=== PATIENT | male | born 1985 | race Two or more races ===

== ENCOUNTER 2019-06-05 21:30 | Inpatient (IN) | payer OTHER ==
[2019-06-05] MEDS ORDERED: SODIUM CHLORIDE 1,000 ML IV STA (21:38)
--- NOTE | 2019-06-05 21:38 | PDOC ---
Rapid Medical Evaluation Time Seen by Provider: 06/05/19 21:35 Medical Evaluation: 06/05/19 21:35 CC: dizziness- loss of balance; dx with DM 5 days ago- no meds. PE: AF. BP-161/76. Gait steady. Neuro grossly normal. Orders: DKA w/u Patient will proceed to ED for continued evaluation. Discharge Disposition - Diagnosis Dizziness - Referrals - Patient Instructions - Post Discharge Activity
--- NOTE | 2019-06-05 22:18 | PDOC ---
History of Present Illness - General Chief Complaint: Lightheaded Stated Complaint: DIZZINESS, ABD PAIN Time Seen by Provider: 06/05/19 21:35 History Source: Patient Exam Limitations: No Limitations - History of Present Illness Initial Comments: 06/05/19 22:18 33yM w PMHx DM, obesity, GERD presenting w 2d lightheadedness, blurry vision, polyuria, polydypsia, constipation (last BM 3d ago), constant mild epigastric pain. Was discharged from [facility] 2d ago for new DM diagnosis and DKA vs HHS management (BG 1100). Was DC w insulin prescription but could not get meds d/t insurance issues and cost. Denies LOC, head trauma, fall, headache, fevers, chest pain, SOB, dysuria. Past History - Past Medical History Allergies/Adverse Reactions: Allergies Allergy/AdvReac Type Severity Reaction Status Date / Time No Known Allergies Allergy Verified 06/05/19 21:37 COPD: No Diabetes: Yes - Surgical History Appendectomy: Yes - Psycho Social/Smoking Cessation Hx Smoking History: Never smoked Review of Systems - Review of Systems Constitutional: No: Chills, Fever HEENTM: Yes: Recent change in vision. No: Nose Pain Respiratory: No: Cough, Shortness of Breath Cardiac (ROS): No: Chest Pain, Palpitations ABD/GI: Yes: Constipated. No: Abdominal Distended, Diarrhea, Nausea, Vomiting : Yes: Frequency. No: Burning Musculoskeletal: No: Back Pain, Joint Pain Integumentary: No: Bruising, Flushing Neurological: No: Headache, Seizure Psychiatric: No: Anxiety, Depression Endocrine: No: Intolerance to Cold, Intolerance to Heat Hematologic/Lymphatic: No: Anemia, Blood Clots *Physical Exam - Vital Signs Last Vital Signs Temp Pulse Resp BP Pulse Ox 97.9 F 98 H 18 161/76 98 06/05/19 21:35 06/05/19 21:35 06/05/19 21:35 06/05/19 21:35 06/05/19 21:35 - Physical Exam General Appearance: Yes: Nourished, Appropriately Dressed, Mild Distress, Obese HEENT: positive: EOMI, TALHA, Normal Voice. negative: Scleral Icterus (R), Scleral Icterus (L) Respiratory/Chest: positive: Lungs Clear, Normal Breath Sounds. negative: Chest Tender, Respiratory Distress, Crackles, Rales, Rhonchi, Stridor, Wheezing Cardiovascular: positive: Regular Rhythm, Regular Rate, S1, S2. negative: Edema , Murmur Gastrointestinal/Abdominal: positive: Normal Bowel Sounds, Tender (mild epigatric), Flat, Soft. negative: Organomegaly Musculoskeletal: negative: CVA Tenderness (R), Other Extremity: positive: Delayed Capillary Refill Integumentary: positive: Normal Color, Dry Neurologic: positive: sole ruffer II-XII NML intact, Fully Oriented, Alert, Normal Response, Responsive, Other (no gross vision deficits). negative: Confused, Disoriented ED Treatment Course - LABORATORY CBC & Chemistry Diagram: 06/05/19 23:30 06/05/19 22:50 Medical Decision Making - Medical Decision Making 06/05/19 22:44 EKG NSR, HR 86, QTc 409, TWI V1 CT A/P normal pancreas, gallbladder, biliary, hemangioma L acetabulum, hepatosplenomegaly Hgb 10.7, pH 7.36, Cr 1.5, lipase 767, BG 675 --- 33yM w PMHx DM, obesity, GERD presenting w 2d lightheadedness, blurry vision, polyuria, polydypsia, constipation (last BM 3d ago), constant mild epigastric pain Has profound hyperglycemia 2/2 med noncompliance. Also has BERTO (Cr 1.5) and rhabdo (CK 1062). Low concern for UTI (neg) vs ACS (neg trop) vs DKA (does not meet diagnosis criteria) vs pancreatitis (normal pancreas on CT) Given 2L NS, 8u insulin, tylenol. Repeat BG 381 Admitted tele hospitalist for hyperglycemia, BERTO No PCP Discharge - Discharge Information Problems reviewed: Yes Clinical Impression/Diagnosis: Hyperglycemia, BERTO (acute kidney injury) Condition: Improved - Follow up/Referral - Patient Discharge Instructions - Post Discharge Activity
--- NOTE | 2019-06-05 22:26 | PDOC ---
Attending Attestation - Resident Resident Name: LalitaGab - ED Attending Attestation I have performed the following: I have examined & evaluated the patient, The case was reviewed & discussed with the resident, I agree w/resident's findings & plan, Exceptions are as noted - HPI HPI: 06/12/19 20:41 See resident HPI - Physicial Exam PE: 06/12/19 20:42 Agree with exam as documented by resident - Medical Decision Making 06/12/19 20:42 Recently diagnosed with diabetes, recently treated and discharged from [facility] for DKA, unable to get prescribed medications 2/2 insurance here with signs/symptoms consistent with hyperglycemia, elevated on initial fingerstick F/u labs, eval for dka, hhs insulin, aggressive ivf dispo per clinical course, likely admission
[2019-06-05 23:15] LABS: BASO % 1.2 % (0-2.0); EOS % 1.6 % (0-4.5); HEMATOCRIT 30.9 % (35.4-49); HEMOGLOBIN 10.7 GM/dL (11.7-16.9); LYMPH % 29.5 % (8-40); MCH 30.2 pg (25.7-33.7); MCHC 34.7 g/dl (32.0-35.9); MONO % 7.2 % (3.8-10.2); NEUT % 60.5 % (42.8-82.8); RBC 3.56 M/mm3 (4.00-5.60); RDW 13.8 % (11.9-15.9); VENOUS PC02 48.8 mmHg (38-52); VENOUS PH 7.36 (7.31-7.41)
[2019-06-05 23:16] LABS: URINE APPEARANCE CLEAR; URINE BILIRUBIN NEGATIVE (NEGATIVE); URINE COLOR YELLOW; URINE GLUCOSE (UA) 3+ (NEGATIVE); URINE KETONE TRACE (NEGATIVE); URINE LEUK ESTERASE NEGATIVE (NEGATIVE); URINE NITRITE NEGATIVE (NEGATIVE); URINE PROTEIN NEGATIVE (NEGATIVE); URINE UROBILINOGEN 0.2 mg/dL (0.2-1.0)
[2019-06-05 23:17] LABS: VENOUS PO2 < 49 mmHg (28-48)
[2019-06-05 23:21] LABS: WHITE BLOOD COUNT 5.4 K/mm3 (4.0-10.0)
[2019-06-05] MEDS ORDERED: SODIUM CHLORIDE 0.9% 500 ML INFUS.BAG IV ONE (23:26)
[2019-06-05 23:28] LABS: INR 0.88 (0.83-1.09); PROTHROMBIN TIME (PATIENT) 10.4 SEC (9.7-13.0)
[2019-06-05 23:30] LABS: ACTIVATED PTT 23.5 SECONDS (25.2-36.5)
[2019-06-05 23:48] LABS: BASO % 0.9 % (0-2.0); EOS % 1.4 % (0-4.5); HEMATOCRIT 30.6 % (35.4-49); HEMOGLOBIN 10.5 GM/dL (11.7-16.9); LYMPH % 30.5 % (8-40); MCH 29.8 pg (25.7-33.7); MCHC 34.1 g/dl (32.0-35.9); MEAN CELL VOLUME 87.4 fl (80-96); MEAN PLT VOLUME 11.1 fl (7.5-11.1); MONO % 9.9 % (3.8-10.2); NEUT % 57.3 % (42.8-82.8); PLATELET COUNT 183 K/MM3 (134-434); RDW 13.7 % (11.9-15.9); WHITE BLOOD COUNT 5.4 K/mm3 (4.0-10.0)
[2019-06-05 23:53] LABS: ALBUMIN 3.7 g/dl (3.4-5.0); BILIRUBIN,TOTAL 0.5 mg/dL (0.2-1); BLOOD UREA NITROGEN 19.4 mg/dL (7-18); CALCIUM 8.4 mg/dL (8.5-10.1); CREATININE 1.5 mg/dL (0.55-1.3); POTASSIUM 5.1 mmol/L (3.5-5.1); TOT PROT 6.7 g/dl (6.4-8.2)
[2019-06-06] MEDS ORDERED: INSULIN REGULAR HUMAN 100 UNITS/ML *VIAL IVPUSH ONE (00:05)
[2019-06-06] MEDS ORDERED: INSULIN REGULAR HUMAN 100 UNITS/ML *VIAL ONE (01:03)
[2019-06-06] MEDS ORDERED: ACETAMINOPHEN 1000 MG/100 ML VIAL (NON FORMULARY) IVPB ONE (03:36)
[2019-06-06] MEDS ORDERED: ACETAMINOPHEN INJECTION 100 ML IVPB ONE (04:16)
--- NOTE | 2019-06-06 05:18 | PN ---
Teaching Attending Note Name of Resident: Kacey Holloway ATTENDING PHYSICIAN STATEMENT I saw and evaluated the patient. I reviewed the resident's note and discussed the case with the resident. I agree with the resident's findings and plan as documented. SUBJECTIVE: 33-year-old male with recently diagnosed diabetes mellitus, previously regarded as healthy, recently hospitalized at [facility] and treated in the ICU for severe hyperglycemia and discharged without ability to acquire insulin, presents complaining of increased fatigue, dizziness, blurry vision. Noted to be severely hyperglycemic in the emergency room, received 8 units of IV insulin , IV fluid with improvement of his symptoms.Noted to have high beta ejection butyrate, trace urine ketones however there was no anion gap present on his chemistry. OBJECTIVE: Last Vital Signs Temp Pulse Resp BP Pulse Ox 98.1 F 79 15 155/83 98 06/06/19 02:30 06/06/19 02:30 06/06/19 02:30 06/06/19 02:30 06/06/19 02:30 Physical exam was remarkable for an obese gentleman in no apparent distress. Appeared to have dry mucous membranes, head was atraumatic. Decrease JVD bilaterally. Lungs are clear bilaterally, abdomen benign soft with positive bowel sounds. Normal cardiac exam. Lower extremities with no pedal edema Abnormal Lab Results 06/05/19 06/05/19 06/05/19 22:50 22:50 22:50 RBC 3.56 L Hgb 10.7 L Hct 30.9 L MPV 12.0 H PTT (Actin FS) POC VBG pO2 VBG O2 Sat (Bonnie) Sodium Chloride Anion Gap BUN Creatinine Random Glucose Calcium AST ALT Creatine Kinase 1062 H Lipase Beta-Hydroxybutyrate 11.0 H Urine Glucose (UA) Urine Ketones 06/05/19 06/05/19 06/05/19 22:50 22:50 22:50 RBC Hgb Hct MPV PTT (Actin FS) 23.5 L POC VBG pO2 VBG O2 Sat (Bonnie) Sodium 132 L Chloride 97 L Anion Gap 6 L BUN 19.4 H Creatinine 1.5 H Random Glucose 675 H* Calcium 8.4 L AST 61 H ALT 78 H Creatine Kinase Lipase 767 H Beta-Hydroxybutyrate Urine Glucose (UA) 3+ H Urine Ketones Trace H 06/05/19 06/05/19 22:50 23:30 RBC 3.50 L Hgb 10.5 L Hct 30.6 L MPV PTT (Actin FS) POC VBG pO2 < 49 H VBG O2 Sat (Bonnie) 52.1 L Sodium Chloride Anion Gap BUN Creatinine Random Glucose Calcium AST ALT Creatine Kinase Lipase Beta-Hydroxybutyrate Urine Glucose (UA) Urine Ketones ASSESSMENT AND PLAN: 33-year-old male morbidly obese male with Uncontrolled hypertension, metabolic syndrome, with hyperosmolar hyperglycemic state, severely uncontrolled diabetes mellitus secondary to medication noncompliance secondary to lack of insurance. There is no positive anion gap therefore does not meet criteria for DKA. Blood glucose is much improved after 8 units of IV insulin. Patient is able to go to [facility] at this time. Severely intravascularly depleted, prerenal azotemia is noted. Very dry on physical exam likely from osmolar effect from hyperglycemia. 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 for uncontrolled hypertension and for renal protective effect #Transaminitisunclear etiology Liver sonogram DVT prophylaxisSCDs #Normocytic anemiauncertain etiology Iron studies, ferritin level, vitamin B12, TSH
--- NOTE | 2019-06-06 05:33 | HP ---
CHIEF COMPLAINT: dry mouth, urinary frequency, increased thirst, chills PCP: none HISTORY OF PRESENT ILLNESS: 33 y/o/m with PMHx of newly diagnosed DM, obesity, GERD presented to the ED due to increased urinary frequency, increased thirst, chills and abd pain. Patient was admitted to [facility] on 05/31 for lightheadedness, dry mouth, increased urinary frequency and lethargy. He states he was in the ICU for 2 days due to high glucose levels (over 1000) and was then monitored on the floors until he was discharged on 06/04. He was diagnosed with DM and discharged with prescription for DM medications including insulin, however due to high cost and insurance issues he was unable to get his medications for the last 2 days. He started to have intermittent blurry vision again, increased urinary frequency, dry mouth, and epigastric pain which led him to come to the ED. He has not had a BM in 3 days. He also complains of chills and a mild headache. He denies fever, dysuria, hematuria, chest pain, abd pain. He denies any recent injury. He states that he has spoken with the [employer] and has set up his insurance and should now be able to get insulin. Patient denies bloody/ dark stool. ER course was notable for: (1) 2L NS given, 8units insulin given. (2) Repeat BGM at 381 (3) CT A/P without evidence for pancreas, stomach, kidneys, gallbladder. Hemangioma of left acetabulam. No evidence of appendicitis Recent Travel: none PAST MEDICAL HISTORY: DM, obesity, GERD PAST SURGICAL HISTORY: Left knee CL repair, appendectomy Social History: Smoking: quit 2-3 months ago, was previously smoking 1 pack or less a day Alcohol: denies Drugs: occasional marijuana use when he travels somewhere where it is legal FamHx: mother with sickle cell who was on hemodialysis prior to passing at age 65. Father who is alive, has hx of HTN. Grandma with hx of DM, HTN Allergies No Known Allergies Allergy (Verified 06/05/19 21:37) HOME MEDICATIONS: REVIEW OF SYSTEMS as per HPI PHYSICAL EXAMINATION Vital Signs - 24 hr 06/05/19 06/06/19 21:35 02:30 Temperature 97.9 F 98.1 F Pulse Rate 98 H Pulse Rate [ 79 Left Radial] Respiratory 18 15 Rate Blood Pressure 161/76 Blood Pressure 155/83 [Left Arm] O2 Sat by Pulse 98 98 Oximetry (%) GENERAL: Awake, alert, and fully oriented, in no acute distress. HEAD: Normal with no signs of trauma. EYES: EOMI, no scleral icterus EARS, NOSE, THROAT: dry mucous membranes NECK: supple, trachea midline LUNGS: Breath sounds equal, clear to auscultation bilaterally. No wheezes, and no crackles. No accessory muscle use. HEART: Regular rate and rhythm, normal S1 and S2 without murmur, rub or gallop. ABDOMEN: Soft, nontender, not distended, normoactive bowel sounds, no guarding, no rebound, no masses RECTAL: no hemorrhoids noted, no raman blood seen. normal rectal tone MUSCULOSKELETAL: No bony deformities or tenderness EXTREMITIES: 2+ pulses, warm, well-perfused. No calf tenderness. trace edema of bilateral lower extremities NEUROLOGICAL: Cranial nerves II-XII intact. Normal speech. PSYCHIATRIC: Cooperative. Good eye contact. Appropriate mood and affect. SKIN: Warm, dry, normal turgor Laboratory Results - last 24 hr 06/05/19 06/05/19 06/05/19 22:33 22:50 22:50 WBC RBC Hgb Hct MCV MCH MCHC RDW Plt Count MPV Absolute Neuts (auto) Neutrophils % Lymphocytes % Monocytes % Eosinophils % Basophils % Nucleated RBC % PT with INR INR PTT (Actin FS) VBG pH POC VBG pCO2 POC VBG pO2 VBG HCO3 VBG O2 Sat (Bonnie) VBG Base Excess Sodium Potassium Chloride Carbon Dioxide Anion Gap BUN Creatinine Est GFR (CKD-EPI)AfAm Est GFR (CKD-EPI)NonAf POC Glucometer > 600 Random Glucose Calcium Total Bilirubin AST ALT Alkaline Phosphatase Creatine Kinase 1062 H Troponin I < 0.02 Total Protein Albumin Lipase Beta-Hydroxybutyrate 11.0 H Urine Color Urine Appearance Urine pH Ur Specific Stephenson Urine Protein Urine Glucose (UA) Urine Ketones Urine Blood Urine Nitrite Urine Bilirubin Urine Urobilinogen Ur Leukocyte Esterase 06/05/19 06/05/19 06/05/19 22:50 22:50 22:50 WBC 5.4 RBC 3.56 L Hgb 10.7 L Hct 30.9 L MCV 87.0 MCH 30.2 MCHC 34.7 RDW 13.8 Plt Count MPV 12.0 H Absolute Neuts (auto) 3.3 Neutrophils % 60.5 Lymphocytes % 29.5 Monocytes % 7.2 Eosinophils % 1.6 Basophils % 1.2 Nucleated RBC % 0 PT with INR 10.40 INR 0.88 PTT (Actin FS) 23.5 L VBG pH POC VBG pCO2 POC VBG pO2 VBG HCO3 VBG O2 Sat (Bonnie) VBG Base Excess Sodium 132 L Potassium 5.1 Chloride 97 L Carbon Dioxide 29 Anion Gap 6 L BUN 19.4 H Creatinine 1.5 H Est GFR (CKD-EPI)AfAm 68.91 Est GFR (CKD-EPI)NonAf 59.46 POC Glucometer Random Glucose 675 H* Calcium 8.4 L Total Bilirubin 0.5 AST 61 H ALT 78 H Alkaline Phosphatase 99 Creatine Kinase Troponin I Total Protein 6.7 Albumin 3.7 Lipase 767 H Beta-Hydroxybutyrate Urine Color Urine Appearance Urine pH Ur Specific Stephenson Urine Protein Urine Glucose (UA) Urine Ketones Urine Blood Urine Nitrite Urine Bilirubin Urine Urobilinogen Ur Leukocyte Esterase 06/05/19 06/05/19 06/05/19 22:50 22:50 23:30 WBC 5.4 RBC 3.50 L Hgb 10.5 L Hct 30.6 L MCV 87.4 MCH 29.8 MCHC 34.1 RDW 13.7 Plt Count 183 MPV 11.1 Absolute Neuts (auto) 3.1 Neutrophils % 57.3 Lymphocytes % 30.5 Monocytes % 9.9 Eosinophils % 1.4 Basophils % 0.9 Nucleated RBC % 0 PT with INR INR PTT (Actin FS) VBG pH 7.36 POC VBG pCO2 48.8 POC VBG pO2 < 49 H VBG HCO3 27.1 VBG O2 Sat (Bonnie) 52.1 L VBG Base Excess 1.7 Sodium Potassium Chloride Carbon Dioxide Anion Gap BUN Creatinine Est GFR (CKD-EPI)AfAm Est GFR (CKD-EPI)NonAf POC Glucometer Random Glucose Calcium Total Bilirubin AST ALT Alkaline Phosphatase Creatine Kinase Troponin I Total Protein Albumin Lipase Beta-Hydroxybutyrate Urine Color Yellow Urine Appearance Clear Urine pH 6.0 Ur Specific Stephenson 1.023 Urine Protein Negative Urine Glucose (UA) 3+ H Urine Ketones Trace H Urine Blood Negative Urine Nitrite Negative Urine Bilirubin Negative Urine Urobilinogen 0.2 Ur Leukocyte Esterase Negative 06/06/19 03:41 WBC RBC Hgb Hct MCV MCH MCHC RDW Plt Count MPV Absolute Neuts (auto) Neutrophils % Lymphocytes % Monocytes % Eosinophils % Basophils % Nucleated RBC % PT with INR INR PTT (Actin FS) VBG pH POC VBG pCO2 POC VBG pO2 VBG HCO3 VBG O2 Sat (Bonnie) VBG Base Excess Sodium Potassium Chloride Carbon Dioxide Anion Gap BUN Creatinine Est GFR (CKD-EPI)AfAm Est GFR (CKD-EPI)NonAf POC Glucometer 381 Random Glucose Calcium Total Bilirubin AST ALT Alkaline Phosphatase Creatine Kinase Troponin I Total Protein Albumin Lipase Beta-Hydroxybutyrate Urine Color Urine Appearance Urine pH Ur Specific Stephenson Urine Protein Urine Glucose (UA) Urine Ketones Urine Blood Urine Nitrite Urine Bilirubin Urine Urobilinogen Ur Leukocyte Esterase ASSESSMENT/PLAN: 33 y/o/m with PMHx of newly diagnosed DM, obesity, GERD presented to the ED due to increased urinary frequency, increased thirst, chills and abd pain. Patient recently diagnosed with DM. #Hyperosmolar hyperglycemic state - 2L NS, 8unit insulin given in ED with good effect - BGMs, ISS Q4H - Levemir 10units HS - no anion gap - Patient states his A1c at [facility] was 14 - UA positive for 3+ glucose - CXR ordered to r/o infiltrate - Influenza A and B tests ordered - F/u urine culture #BERTO - likely 2/2 to intravascular depletion - IVF - Renal/Kidney U/S ordered - Lisinopril 10mg started for renal protective effect #HTN - Lisinopril 10mg started #Tranaminitis - RUQ abdominal U/S ordered - possible 2/2 to elevated CK of unclear etiology - Lipase elevated. CT A/P without evidence of pancreatitis #Normocytic Anemia - stool occult blood test negative - Ordered Iron studies, B12, folate, TSH - patient with family history of Sickle cell disease #Prophylaxis - Heparin - SCDs #FEN - Diabetic diet - NS @150mls/hr - monitor and replete lytes as needed #Disposition - admitted to med surg - patient will need referral for PCP, opthalmologist, project systems engineer, bariatric surgery on discharge Visit type - Emergency Visit Emergency Visit: Yes ED Registration Date: 06/05/19 Care time: The patient presented to the Emergency Department on the above date and was hospitalized for further evaluation of their emergent condition. - New Patient This patient is new to me today: Yes Date on this admission: 06/06/19 - Critical Care Critical Care patient: No ATTENDING PHYSICIAN STATEMENT I saw and evaluated the patient. I reviewed the resident's note and discussed the case with the resident. I agree with the resident's findings and plan as documented. SUBJECTIVE: OBJECTIVE: ASSESSMENT AND PLAN:
[2019-06-06 06:39] LABS: PLATELET COUNT 183 K/MM3 (134-434)
[2019-06-06] MEDS ORDERED: HEPARIN NA (PORCINE) 5,000 UNITS/ML 1ML VIAL ONE ×2 (07:25→08:24)
[2019-06-06] MEDS: HEPARIN NA (PORCINE) 5,000 UNITS/ML 1ML VIAL SQ SCH ×3 (07:42→22:08)
[2019-06-06] MEDS: INSULIN SLIDING SCALE (NOVOLOG) 1 VIAL SQ SCH ×6 (07:42→22:07)
--- NOTE | 2019-06-06 07:44 | CONSULT ---
Consult Consult Specialty:: Nephrology Reason for Consultation:: BERTO - History of Present Illness Chief Complaint: increased thirst History of Present Illness: Pt is a 33 year old male with pmhx of newly diagnosed DM about 5 days ago, gerd and obesity who presents to the ER with increased thirst and urinary frequency. He was recently admitted to a hospital in [place] for hyperglycemia. 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 He denies shortness of breath. He denies ab pain. He says that he feels much better today. He does have family hx of kidney disease as his mother was on dialysis. - History Source History Provided By: Patient, Medical Record - Past Medical History Gastrointestinal: Yes: GERD Endocrine: Yes: Diabetes Mellitus - Smoking History Smoking history: Never smoked Home Medications - Allergies Allergies/Adverse Reactions: Allergies Allergy/AdvReac Type Severity Reaction Status Date / Time No Known Allergies Allergy Verified 06/05/19 21:37 - Home Medications Home Medications: Ambulatory Orders NK [No Known Home Medication] 06/06/19 Family Medical History Family Hx Renal Disease: Mother Review of Systems - Review of Systems Constitutional: reports: Malaise Eyes: reports: No Symptoms HENT: reports: No Symptoms Neck: reports: No Symptoms Cardiovascular: reports: No Symptoms Respiratory: reports: No Symptoms Gastrointestinal: reports: No Symptoms Genitourinary: reports: No Symptoms Musculoskeletal: reports: No Symptoms Integumentary: reports: No Symptoms Neurological: reports: No Symptoms Endocrine: reports: No Symptoms Hematology/Lymphatic: reports: No Symptoms Psychiatric: reports: No Symptoms Physical Exam Vital Signs: Vital Signs Temperature 98.1 F 06/06/19 02:30 Pulse Rate 72 06/06/19 06:37 Respiratory Rate 20 06/06/19 06:37 Blood Pressure 133/56 L 06/06/19 06:37 O2 Sat by Pulse Oximetry (%) 100 06/06/19 06:37 Constitutional: Yes: Calm Eyes: Yes: Conjunctiva Clear HENT: Yes: Atraumatic Cardiovascular: Yes: S1, S2 Respiratory: Yes: CTA Bilaterally Gastrointestinal: Yes: Soft, Abdomen, Obese Renal/: Yes: WNL Musculoskeletal: Yes: WNL Edema: Yes Edema: LLE: Trace, RLE: Trace Neurological: Yes: Oriented Psychiatric: Yes: Oriented Labs: CBC, BMP 06/05/19 23:30 06/05/19 22:50 Laboratory Tests 06/05/19 06/05/19 06/05/19 22:50 22:50 22:50 WBC Hgb 10.7 L VBG pH 7.36 POC VBG pCO2 48.8 Sodium 132 L Potassium 5.1 Creatinine 1.5 H 06/05/19 06/06/19 06/06/19 23:30 10:48 10:48 WBC 5.9 Hgb 10.5 L 11.0 L VBG pH POC VBG pCO2 Sodium 135 L Potassium 4.3 Creatinine 1.1 Imaging - Results Ultrasound: Report Reviewed Problem List - Problems (1) BERTO (acute kidney injury) Code(s): N17.9 - ACUTE KIDNEY FAILURE, UNSPECIFIED (2) Hyperglycemia Code(s): R73.9 - HYPERGLYCEMIA, UNSPECIFIED Assessment/Plan Current Medications Generic Name Dose Route Start Last Admin Trade Name Freq PRN Reason Stop Dose Admin Heparin Sodium (Porcine) 5,000 unit 06/06/19 06:00 06/06/19 07:42 Heparin - SQ Not Given TID [facility] Sodium Chloride 1,000 mls @ 150 mls/hr 06/06/19 05:45 Normal Saline - IV ASDIR [facility] Insulin Aspart 1 vial 06/06/19 06:00 06/06/19 07:42 Novolog Vial Sliding Scale - SQ Not Given Q4HPO [facility] Protocol Insulin Detemir 10 units 06/06/19 22:00 Levemir Vial SQ HS [facility] Lisinopril 10 mg 06/06/19 10:00 Prinivil PO DAILY [facility] Laboratory Tests 06/05/19 22:50 Urine Protein Negative Urine Glucose (UA) 3+ H Urine Blood Negative Impression 1. BERTO 2. dehydration 3. DM 4. gerd 5. obesity Plan - renal function improving - negative blood or protein on ua - renal ultrasound reviewed - monitor lytes - berto likely from dehydration secondary to uncontrolled DM
[2019-06-06] MEDS: SODIUM CHLORIDE 1,000 ML IV SCH ×3 (08:30→22:08)
--- NOTE | 2019-06-06 10:18 | PN ---
Physical Exam: SUBJECTIVE: Patient seen and examined OBJECTIVE: Vital Signs Period Temp Pulse Resp BP Sys/Bernard Pulse Ox Last 24 Hr 97.9 F-98.1 F 72-98 15-20 133-161/56-83 98-100 GENERAL: The patient is awake, alert, and fully oriented, in no acute distress. HEAD: Normal with no signs of trauma. EYES: PERRL, extraocular movements intact, sclera anicteric, conjunctiva clear. No ptosis. ENT: Ears normal, nares patent, oropharynx clear without exudates, moist mucous membranes. NECK: Trachea midline, full range of motion, supple. LUNGS: Breath sounds equal, clear to auscultation bilaterally, no wheezes, no crackles, no accessory muscle use. HEART: Regular rate and rhythm, S1, S2 without murmur, rub or gallop. ABDOMEN: Soft, nontender, nondistended, normoactive bowel sounds, no guarding, no rebound, no hepatosplenomegaly, no masses. EXTREMITIES: 2+ pulses, warm, well-perfused, no edema. NEUROLOGICAL: Cranial nerves II through XII grossly intact. Normal speech, gait not observed. PSYCH: Normal mood, normal affect. SKIN: Warm, dry, normal turgor, no rashes or lesions noted Laboratory Results - last 24 hr 06/05/19 06/05/19 06/05/19 22:33 22:50 22:50 WBC RBC Hgb Hct MCV MCH MCHC RDW Plt Count MPV Absolute Neuts (auto) Neutrophils % Lymphocytes % Monocytes % Eosinophils % Basophils % Nucleated RBC % PT with INR INR PTT (Actin FS) VBG pH POC VBG pCO2 POC VBG pO2 VBG HCO3 VBG O2 Sat (Bonnie) VBG Base Excess Sodium Potassium Chloride Carbon Dioxide Anion Gap BUN Creatinine Est GFR (CKD-EPI)AfAm Est GFR (CKD-EPI)NonAf POC Glucometer > 600 Random Glucose Calcium Total Bilirubin AST ALT Alkaline Phosphatase Creatine Kinase 1062 H Creatine Kinase Index 0.1 CK-MB (CK-2) 1.5 Troponin I < 0.02 Total Protein Albumin Lipase Beta-Hydroxybutyrate 11.0 H Urine Color Urine Appearance Urine pH Ur Specific [place] Urine Protein Urine Glucose (UA) Urine Ketones Urine Blood Urine Nitrite Urine Bilirubin Urine Urobilinogen Ur Leukocyte Esterase Stool Occult Blood 06/05/19 06/05/19 06/05/19 22:50 22:50 22:50 WBC 5.4 RBC 3.56 L Hgb 10.7 L Hct 30.9 L MCV 87.0 MCH 30.2 MCHC 34.7 RDW 13.8 Plt Count 183 MPV 12.0 H Absolute Neuts (auto) 3.3 Neutrophils % 60.5 Lymphocytes % 29.5 Monocytes % 7.2 Eosinophils % 1.6 Basophils % 1.2 Nucleated RBC % 0 PT with INR 10.40 INR 0.88 PTT (Actin FS) 23.5 L VBG pH POC VBG pCO2 POC VBG pO2 VBG HCO3 VBG O2 Sat (Bonnie) VBG Base Excess Sodium 132 L Potassium 5.1 Chloride 97 L Carbon Dioxide 29 Anion Gap 6 L BUN 19.4 H Creatinine 1.5 H Est GFR (CKD-EPI)AfAm 68.91 Est GFR (CKD-EPI)NonAf 59.46 POC Glucometer Random Glucose 675 H* Calcium 8.4 L Total Bilirubin 0.5 AST 61 H ALT 78 H Alkaline Phosphatase 99 Creatine Kinase Creatine Kinase Index CK-MB (CK-2) Troponin I Total Protein 6.7 Albumin 3.7 Lipase 767 H Beta-Hydroxybutyrate Urine Color Urine Appearance Urine pH Ur Specific [place] Urine Protein Urine Glucose (UA) Urine Ketones Urine Blood Urine Nitrite Urine Bilirubin Urine Urobilinogen Ur Leukocyte Esterase Stool Occult Blood 06/05/19 06/05/19 06/05/19 22:50 22:50 23:30 WBC 5.4 RBC 3.50 L Hgb 10.5 L Hct 30.6 L MCV 87.4 MCH 29.8 MCHC 34.1 RDW 13.7 Plt Count 183 MPV 11.1 Absolute Neuts (auto) 3.1 Neutrophils % 57.3 Lymphocytes % 30.5 Monocytes % 9.9 Eosinophils % 1.4 Basophils % 0.9 Nucleated RBC % 0 PT with INR INR PTT (Actin FS) VBG pH 7.36 POC VBG pCO2 48.8 POC VBG pO2 < 49 H VBG HCO3 27.1 VBG O2 Sat (Bonnie) 52.1 L VBG Base Excess 1.7 Sodium Potassium Chloride Carbon Dioxide Anion Gap BUN Creatinine Est GFR (CKD-EPI)AfAm Est GFR (CKD-EPI)NonAf POC Glucometer Random Glucose Calcium Total Bilirubin AST ALT Alkaline Phosphatase Creatine Kinase Creatine Kinase Index CK-MB (CK-2) Troponin I Total Protein Albumin Lipase Beta-Hydroxybutyrate Urine Color Yellow Urine Appearance Clear Urine pH 6.0 Ur Specific [place] 1.023 Urine Protein Negative Urine Glucose (UA) 3+ H Urine Ketones Trace H Urine Blood Negative Urine Nitrite Negative Urine Bilirubin Negative Urine Urobilinogen 0.2 Ur Leukocyte Esterase Negative Stool Occult Blood 06/06/19 06/06/19 06/06/19 03:41 04:40 08:25 WBC RBC Hgb Hct MCV MCH MCHC RDW Plt Count MPV Absolute Neuts (auto) Neutrophils % Lymphocytes % Monocytes % Eosinophils % Basophils % Nucleated RBC % PT with INR INR PTT (Actin FS) VBG pH POC VBG pCO2 POC VBG pO2 VBG HCO3 VBG O2 Sat (Bonnie) VBG Base Excess Sodium Potassium Chloride Carbon Dioxide Anion Gap BUN Creatinine Est GFR (CKD-EPI)AfAm Est GFR (CKD-EPI)NonAf POC Glucometer 381 347 Random Glucose Calcium Total Bilirubin AST ALT Alkaline Phosphatase Creatine Kinase Creatine Kinase Index CK-MB (CK-2) Troponin I Total Protein Albumin Lipase Beta-Hydroxybutyrate Urine Color Urine Appearance Urine pH Ur Specific [place] Urine Protein Urine Glucose (UA) Urine Ketones Urine Blood Urine Nitrite Urine Bilirubin Urine Urobilinogen Ur Leukocyte Esterase Stool Occult Blood Negative Active Medications Generic Name Dose Route Start Last Admin Trade Name Freq PRN Reason Stop Dose Admin Heparin Sodium (Porcine) 5,000 unit 06/06/19 06:00 Heparin - SQ TID [facility] Sodium Chloride 1,000 mls @ 150 mls/hr 06/06/19 05:45 06/06/19 08:30 Normal Saline - IV 150 mls/hr ASDIR [facility] Administration Insulin Aspart 1 vial 06/06/19 11:00 Novolog Vial Sliding Scale - SQ ACHS [facility] Protocol Insulin Detemir 30 units 06/06/19 22:00 Levemir Vial SQ HS [facility] Lisinopril 10 mg 06/06/19 10:00 Prinivil PO DAILY [facility] ASSESSMENT/PLAN:
--- NOTE | 2019-06-06 11:02 | EKG ---
Test Reason : Blood Pressure : / mmHG Vent. Rate : 086 BPM Atrial Rate : 086 BPM P-R Int : 148 ms QRS Dur : 092 ms QT Int : 342 ms P-R-T Axes : 045 036 017 degrees QTc Int : 409 ms NORMAL SINUS RHYTHM NORMAL ECG NO PREVIOUS ECGS AVAILABLE Confirmed by JASSI ALEXIS MD ([id number]) on 06/06/2019 11:02:19 AM Referred By: Confirmed By:JASSI ALEXIS MD
[2019-06-06 11:07] LABS: HEMATOCRIT 31.7 % (35.4-49); MCH 29.6 pg (25.7-33.7); MCHC 34.6 g/dl (32.0-35.9); MEAN CELL VOLUME 85.5 fl (80-96); MEAN PLT VOLUME 10.7 fl (7.5-11.1); PLATELET COUNT 203 K/MM3 (134-434); RBC 3.71 M/mm3 (4.00-5.60); RETICULOCYTES 3.15 % (0.5-1.5); WHITE BLOOD COUNT 5.9 K/mm3 (4.0-10.0)
[2019-06-06] MEDS: LISINOPRIL 10 MG TABLET (FP) PO SCH (11:47)
[2019-06-06 12:02] LABS: ALBUMIN 3.5 g/dl (3.4-5.0); BILIRUBIN,TOTAL 0.5 mg/dL (0.2-1); CALCIUM 8.3 mg/dL (8.5-10.1); CREATININE 1.1 mg/dL (0.55-1.3); POTASSIUM 4.3 mmol/L (3.5-5.1); TOT PROT 6.3 g/dl (6.4-8.2)
--- NOTE | 2019-06-06 15:29 | CONSULT ---
Consult Consult Specialty:: Endocrine Referred by:: Ayesha RUTHERFORD Reason for Consultation:: DM uncontrolled new onset - History of Present Illness Chief Complaint: HIGH sugars History of Present Illness: 33 y/o/m with PMHx of newly diagnosed DM, obesity, GERD presented with,new onset dm,seen previously at hospital in [place] for dka,given insulin however unable to purchase medication reggression of symptoms,urination, nausea vomiting, headache,blurred vision,dry mouth found to have bs over 650mg/dl now restarted on insulin therapy and iv fluid has felt better. - Past Medical History Gastrointestinal: Yes: GERD Endocrine: Yes: Diabetes Mellitus - Alcohol/Substance Use Hx Alcohol Use: No - Smoking History Smoking history: Never smoked Have you smoked in the past 12 months: No Aproximately how many cigarettes per day: 0 Home Medications - Allergies Allergies/Adverse Reactions: Allergies Allergy/AdvReac Type Severity Reaction Status Date / Time No Known Allergies Allergy Verified 06/05/19 21:37 - Home Medications Home Medications: Ambulatory Orders NK [No Known Home Medication] 06/06/19 Review of Systems - Review of Systems Constitutional: reports: Lethargy Eyes: reports: Blurred Vision HENT: reports: Difficult Swallowing Neck: reports: Decreased ROM Cardiovascular: reports: No Symptoms Respiratory: reports: No Symptoms Gastrointestinal: reports: Nausea Genitourinary: reports: Frequency Musculoskeletal: reports: Muscle Weakness Integumentary: reports: No Symptoms Neurological: reports: No Symptoms Endocrine: reports: Unexplained Weight Loss Physical Exam Vital Signs: Vital Signs Temperature 98.1 F 06/06/19 15:07 Pulse Rate 72 06/06/19 15:07 Respiratory Rate 18 06/06/19 15:07 Blood Pressure 136/64 06/06/19 15:07 O2 Sat by Pulse Oximetry (%) 100 06/06/19 06:37 Constitutional: Yes: Calm Eyes: Yes: EOM Intact HENT: Yes: Normocephalic Neck: Yes: Trachea Midline Respiratory: Yes: CTA Bilaterally Gastrointestinal: Yes: Normal Bowel Sounds ...Rectal Exam: Yes: Deferred Renal/: Yes: WNL Breast(s): Yes: WNL Musculoskeletal: Yes: WNL Extremities: Yes: WNL Edema: No Neurological: Yes: Alert, Oriented Labs: CBC, BMP 06/06/19 10:48 06/06/19 10:48 Problem List - Problems (1) BERTO (acute kidney injury) Problems reviewed: Yes Code(s): N17.9 - ACUTE KIDNEY FAILURE, UNSPECIFIED (2) Hyperglycemia Problems reviewed: Yes Code(s): R73.9 - HYPERGLYCEMIA, UNSPECIFIED (3) Type 2 diabetes mellitus with hyperosmolarity with coma Problems reviewed: Yes Code(s): E11.01 - TYPE 2 DIABETES MELLITUS WITH HYPEROSMOLARITY WITH COMA Assessment/Plan Current dm hyperglycemia hyperosmolar dehydration obesity BERTO (acute kidney injury) (Acute) Hyperglycemia (Acute) Laboratory Results - last 24 hr 06/05/19 06/05/19 06/05/19 22:33 22:50 22:50 WBC RBC Hgb Hct MCV MCH MCHC RDW Plt Count MPV Absolute Neuts (auto) Neutrophils % Lymphocytes % Monocytes % Eosinophils % Basophils % Nucleated RBC % Retic Count PT with INR INR PTT (Actin FS) VBG pH POC VBG pCO2 POC VBG pO2 VBG HCO3 VBG O2 Sat (Bonnie) VBG Base Excess Sodium Potassium Chloride Carbon Dioxide Anion Gap BUN Creatinine Est GFR (CKD-EPI)AfAm Est GFR (CKD-EPI)NonAf POC Glucometer > 600 Random Glucose Hemoglobin A1c % Calcium Iron TIBC Iron Saturation Unsaturated IBC Ferritin Total Bilirubin AST ALT Alkaline Phosphatase Creatine Kinase 1062 H Creatine Kinase Index 0.1 CK-MB (CK-2) 1.5 Troponin I < 0.02 Total Protein Albumin Triglycerides Cholesterol Total LDL Cholesterol HDL Cholesterol Lipase Vitamin B12 Serum Folate Beta-Hydroxybutyrate 11.0 H Urine Color Urine Appearance Urine pH Ur Specific [place] Urine Protein Urine Glucose (UA) Urine Ketones Urine Blood Urine Nitrite Urine Bilirubin Urine Urobilinogen Ur Leukocyte Esterase Stool Occult Blood Influenza A (Rapid) Influenza B (Rapid) 06/05/19 06/05/19 06/05/19 22:50 22:50 22:50 WBC 5.4 RBC 3.56 L Hgb 10.7 L Hct 30.9 L MCV 87.0 MCH 30.2 MCHC 34.7 RDW 13.8 Plt Count 183 MPV 12.0 H Absolute Neuts (auto) 3.3 Neutrophils % 60.5 Lymphocytes % 29.5 Monocytes % 7.2 Eosinophils % 1.6 Basophils % 1.2 Nucleated RBC % 0 Retic Count PT with INR 10.40 INR 0.88 PTT (Actin FS) 23.5 L VBG pH POC VBG pCO2 POC VBG pO2 VBG HCO3 VBG O2 Sat (Bonnie) VBG Base Excess Sodium 132 L Potassium 5.1 Chloride 97 L Carbon Dioxide 29 Anion Gap 6 L BUN 19.4 H Creatinine 1.5 H Est GFR (CKD-EPI)AfAm 68.91 Est GFR (CKD-EPI)NonAf 59.46 POC Glucometer Random Glucose 675 H* Hemoglobin A1c % Calcium 8.4 L Iron TIBC Iron Saturation Unsaturated IBC Ferritin Total Bilirubin 0.5 AST 61 H ALT 78 H Alkaline Phosphatase 99 Creatine Kinase Creatine Kinase Index CK-MB (CK-2) Troponin I Total Protein 6.7 Albumin 3.7 Triglycerides Cholesterol Total LDL Cholesterol HDL Cholesterol Lipase 767 H Vitamin B12 Serum Folate Beta-Hydroxybutyrate Urine Color Urine Appearance Urine pH Ur Specific [place] Urine Protein Urine Glucose (UA) Urine Ketones Urine Blood Urine Nitrite Urine Bilirubin Urine Urobilinogen Ur Leukocyte Esterase Stool Occult Blood Influenza A (Rapid) Influenza B (Rapid) 06/05/19 06/05/19 06/05/19 22:50 22:50 23:30 WBC 5.4 RBC 3.50 L Hgb 10.5 L Hct 30.6 L MCV 87.4 MCH 29.8 MCHC 34.1 RDW 13.7 Plt Count 183 MPV 11.1 Absolute Neuts (auto) 3.1 Neutrophils % 57.3 Lymphocytes % 30.5 Monocytes % 9.9 Eosinophils % 1.4 Basophils % 0.9 Nucleated RBC % 0 Retic Count PT with INR INR PTT (Actin FS) VBG pH 7.36 POC VBG pCO2 48.8 POC VBG pO2 < 49 H VBG HCO3 27.1 VBG O2 Sat (Bonnie) 52.1 L VBG Base Excess 1.7 Sodium Potassium Chloride Carbon Dioxide Anion Gap BUN Creatinine Est GFR (CKD-EPI)AfAm Est GFR (CKD-EPI)NonAf POC Glucometer Random Glucose Hemoglobin A1c % Calcium Iron TIBC Iron Saturation Unsaturated IBC Ferritin Total Bilirubin AST ALT Alkaline Phosphatase Creatine Kinase Creatine Kinase Index CK-MB (CK-2) Troponin I Total Protein Albumin Triglycerides Cholesterol Total LDL Cholesterol HDL Cholesterol Lipase Vitamin B12 Serum Folate Beta-Hydroxybutyrate Urine Color Yellow Urine Appearance Clear Urine pH 6.0 Ur Specific [place] 1.023 Urine Protein Negative Urine Glucose (UA) 3+ H Urine Ketones Trace H Urine Blood Negative Urine Nitrite Negative Urine Bilirubin Negative Urine Urobilinogen 0.2 Ur Leukocyte Esterase Negative Stool Occult Blood Influenza A (Rapid) Influenza B (Rapid) 06/06/19 06/06/19 06/06/19 03:41 04:40 08:25 WBC RBC Hgb Hct MCV MCH MCHC RDW Plt Count MPV Absolute Neuts (auto) Neutrophils % Lymphocytes % Monocytes % Eosinophils % Basophils % Nucleated RBC % Retic Count PT with INR INR PTT (Actin FS) VBG pH POC VBG pCO2 POC VBG pO2 VBG HCO3 VBG O2 Sat (Bonnie) VBG Base Excess Sodium Potassium Chloride Carbon Dioxide Anion Gap BUN Creatinine Est GFR (CKD-EPI)AfAm Est GFR (CKD-EPI)NonAf POC Glucometer 381 347 Random Glucose Hemoglobin A1c % Calcium Iron TIBC Iron Saturation Unsaturated IBC Ferritin Total Bilirubin AST ALT Alkaline Phosphatase Creatine Kinase Creatine Kinase Index CK-MB (CK-2) Troponin I Total Protein Albumin Triglycerides Cholesterol Total LDL Cholesterol HDL Cholesterol Lipase Vitamin B12 Serum Folate Beta-Hydroxybutyrate Urine Color Urine Appearance Urine pH Ur Specific [place] Urine Protein Urine Glucose (UA) Urine Ketones Urine Blood Urine Nitrite Urine Bilirubin Urine Urobilinogen Ur Leukocyte Esterase Stool Occult Blood Negative Influenza A (Rapid) Influenza B (Rapid) 06/06/19 06/06/19 06/06/19 09:25 10:48 10:48 WBC 5.9 RBC 3.71 L Hgb 11.0 L Hct 31.7 L MCV 85.5 MCH 29.6 MCHC 34.6 RDW 14.0 Plt Count 203 MPV 10.7 Absolute Neuts (auto) Neutrophils % Lymphocytes % Monocytes % Eosinophils % Basophils % Nucleated RBC % Retic Count 3.15 H PT with INR INR PTT (Actin FS) VBG pH POC VBG pCO2 POC VBG pO2 VBG HCO3 VBG O2 Sat (Bonnie) VBG Base Excess Sodium 135 L Potassium 4.3 Chloride 102 Carbon Dioxide 27 Anion Gap 6 L BUN 11.0 Creatinine 1.1 Est GFR (CKD-EPI)AfAm 100.27 Est GFR (CKD-EPI)NonAf 86.51 POC Glucometer Random Glucose 342 H Hemoglobin A1c % Calcium 8.3 L Iron 92 TIBC 220 L Iron Saturation 41 H Unsaturated IBC 128 L Ferritin 947.7 H Total Bilirubin 0.5 AST 40 H ALT 71 H Alkaline Phosphatase 77 Creatine Kinase 679 H Creatine Kinase Index 0.1 CK-MB (CK-2) 1.2 Troponin I Total Protein 6.3 L Albumin 3.5 Triglycerides 513 H Cholesterol 184 Total LDL Cholesterol 74 HDL Cholesterol 29 L Lipase 459 H Vitamin B12 568 Serum Folate 7 Beta-Hydroxybutyrate Urine Color Urine Appearance Urine pH Ur Specific [place] Urine Protein Urine Glucose (UA) Urine Ketones Urine Blood Urine Nitrite Urine Bilirubin Urine Urobilinogen Ur Leukocyte Esterase Stool Occult Blood Influenza A (Rapid) Negative Influenza B (Rapid) Negative 06/06/19 06/06/19 10:48 12:35 WBC RBC Hgb Hct MCV MCH MCHC RDW Plt Count MPV Absolute Neuts (auto) Neutrophils % Lymphocytes % Monocytes % Eosinophils % Basophils % Nucleated RBC % Retic Count PT with INR INR PTT (Actin FS) VBG pH POC VBG pCO2 POC VBG pO2 VBG HCO3 VBG O2 Sat (Bonnie) VBG Base Excess Sodium Potassium Chloride Carbon Dioxide Anion Gap BUN Creatinine Est GFR (CKD-EPI)AfAm Est GFR (CKD-EPI)NonAf POC Glucometer 289 Random Glucose Hemoglobin A1c % 15.0 H Calcium Iron TIBC Iron Saturation Unsaturated IBC Ferritin Total Bilirubin AST ALT Alkaline Phosphatase Creatine Kinase Creatine Kinase Index CK-MB (CK-2) Troponin I Total Protein Albumin Triglycerides Cholesterol Total LDL Cholesterol HDL Cholesterol Lipase Vitamin B12 Serum Folate Beta-Hydroxybutyrate Urine Color Urine Appearance Urine pH Ur Specific [place] Urine Protein Urine Glucose (UA) Urine Ketones Urine Blood Urine Nitrite Urine Bilirubin Urine Urobilinogen Ur Leukocyte Esterase Stool Occult Blood Influenza A (Rapid) Influenza B (Rapid) Laboratory Tests 06/06/19 10:48 Hemoglobin A1c % 15.0 H Plan bgm qid novolog scale novolog 70/30 bid doses metformin 1gm bid diet nutrition Low carb diet
--- NOTE | 2019-06-06 15:42 | PN ---
Physical Exam: SUBJECTIVE: Patient seen and examined in the ED awaiting bed assignment. OBJECTIVE: Patient is a 33 year old male with a past medical history of newly diagnosed DM , obesity, GERD presented to the ED due to increased urinary frequency, increased thirst, chills and abd pain. Patient was admitted to [facility] on 05/31 for lightheadedness, dry mouth, increased urinary frequency and lethargy. He states he was in the ICU for 2 days due to high glucose levels (over 1000) and was then monitored on the floors until he was discharged on . He was unable to fill any of the prescriptions given to him including insulin secondary to lack of insurance. He states he has medicaid and it should be active within 48 hours. problem list: hyperglycemia with elevated hmga1c elevated lipid panel elevated lipase rhabdomyolysis morbid obesity Vital Signs Period Temp Pulse Resp BP Sys/Bernard Pulse Ox Last 24 Hr 97.9 F-98.1 F 72-98 15-20 133-161/56-83 98-100 GENERAL: The patient is awake, alert, and fully oriented, in no acute distress. HEAD: Normal with no signs of trauma. EYES: PERRL, extraocular movements intact, sclera anicteric, conjunctiva clear. No ptosis. ENT: Ears normal, nares patent, oropharynx clear without exudates NECK: Trachea midline, full range of motion, supple. LUNGS: Breath sounds equal, clear to auscultation bilaterally HEART: Regular rate and rhythm, S1, S2 without murmur, rub or gallop. ABDOMEN: Soft, nontender, nondistended, normoactive bowel sounds EXTREMITIES: no edema. NEUROLOGICAL: C Normal speech, gait not observed. Laboratory Results - last 24 hr 06/05/19 06/05/19 06/05/19 22:33 22:50 22:50 WBC RBC Hgb Hct MCV MCH MCHC RDW Plt Count MPV Absolute Neuts (auto) Neutrophils % Lymphocytes % Monocytes % Eosinophils % Basophils % Nucleated RBC % Retic Count PT with INR INR PTT (Actin FS) VBG pH POC VBG pCO2 POC VBG pO2 VBG HCO3 VBG O2 Sat (Bonnie) VBG Base Excess Sodium Potassium Chloride Carbon Dioxide Anion Gap BUN Creatinine Est GFR (CKD-EPI)AfAm Est GFR (CKD-EPI)NonAf POC Glucometer > 600 Random Glucose Hemoglobin A1c % Calcium Iron TIBC Iron Saturation Unsaturated IBC Ferritin Total Bilirubin AST ALT Alkaline Phosphatase Creatine Kinase 1062 H Creatine Kinase Index 0.1 CK-MB (CK-2) 1.5 Troponin I < 0.02 Total Protein Albumin Triglycerides Cholesterol Total LDL Cholesterol HDL Cholesterol Lipase Vitamin B12 Serum Folate Beta-Hydroxybutyrate 11.0 H Urine Color Urine Appearance Urine pH Ur Specific [place] Urine Protein Urine Glucose (UA) Urine Ketones Urine Blood Urine Nitrite Urine Bilirubin Urine Urobilinogen Ur Leukocyte Esterase Stool Occult Blood Influenza A (Rapid) Influenza B (Rapid) 06/05/19 06/05/19 06/05/19 22:50 22:50 22:50 WBC 5.4 RBC 3.56 L Hgb 10.7 L Hct 30.9 L MCV 87.0 MCH 30.2 MCHC 34.7 RDW 13.8 Plt Count 183 MPV 12.0 H Absolute Neuts (auto) 3.3 Neutrophils % 60.5 Lymphocytes % 29.5 Monocytes % 7.2 Eosinophils % 1.6 Basophils % 1.2 Nucleated RBC % 0 Retic Count PT with INR 10.40 INR 0.88 PTT (Actin FS) 23.5 L VBG pH POC VBG pCO2 POC VBG pO2 VBG HCO3 VBG O2 Sat (Bonnie) VBG Base Excess Sodium 132 L Potassium 5.1 Chloride 97 L Carbon Dioxide 29 Anion Gap 6 L BUN 19.4 H Creatinine 1.5 H Est GFR (CKD-EPI)AfAm 68.91 Est GFR (CKD-EPI)NonAf 59.46 POC Glucometer Random Glucose 675 H* Hemoglobin A1c % Calcium 8.4 L Iron TIBC Iron Saturation Unsaturated IBC Ferritin Total Bilirubin 0.5 AST 61 H ALT 78 H Alkaline Phosphatase 99 Creatine Kinase Creatine Kinase Index CK-MB (CK-2) Troponin I Total Protein 6.7 Albumin 3.7 Triglycerides Cholesterol Total LDL Cholesterol HDL Cholesterol Lipase 767 H Vitamin B12 Serum Folate Beta-Hydroxybutyrate Urine Color Urine Appearance Urine pH Ur Specific [place] Urine Protein Urine Glucose (UA) Urine Ketones Urine Blood Urine Nitrite Urine Bilirubin Urine Urobilinogen Ur Leukocyte Esterase Stool Occult Blood Influenza A (Rapid) Influenza B (Rapid) 06/05/19 06/05/19 06/05/19 22:50 22:50 23:30 WBC 5.4 RBC 3.50 L Hgb 10.5 L Hct 30.6 L MCV 87.4 MCH 29.8 MCHC 34.1 RDW 13.7 Plt Count 183 MPV 11.1 Absolute Neuts (auto) 3.1 Neutrophils % 57.3 Lymphocytes % 30.5 Monocytes % 9.9 Eosinophils % 1.4 Basophils % 0.9 Nucleated RBC % 0 Retic Count PT with INR INR PTT (Actin FS) VBG pH 7.36 POC VBG pCO2 48.8 POC VBG pO2 < 49 H VBG HCO3 27.1 VBG O2 Sat (Bonnie) 52.1 L VBG Base Excess 1.7 Sodium Potassium Chloride Carbon Dioxide Anion Gap BUN Creatinine Est GFR (CKD-EPI)AfAm Est GFR (CKD-EPI)NonAf POC Glucometer Random Glucose Hemoglobin A1c % Calcium Iron TIBC Iron Saturation Unsaturated IBC Ferritin Total Bilirubin AST ALT Alkaline Phosphatase Creatine Kinase Creatine Kinase Index CK-MB (CK-2) Troponin I Total Protein Albumin Triglycerides Cholesterol Total LDL Cholesterol HDL Cholesterol Lipase Vitamin B12 Serum Folate Beta-Hydroxybutyrate Urine Color Yellow Urine Appearance Clear Urine pH 6.0 Ur Specific [place] 1.023 Urine Protein Negative Urine Glucose (UA) 3+ H Urine Ketones Trace H Urine Blood Negative Urine Nitrite Negative Urine Bilirubin Negative Urine Urobilinogen 0.2 Ur Leukocyte Esterase Negative Stool Occult Blood Influenza A (Rapid) Influenza B (Rapid) 06/06/19 06/06/19 06/06/19 03:41 04:40 08:25 WBC RBC Hgb Hct MCV MCH MCHC RDW Plt Count MPV Absolute Neuts (auto) Neutrophils % Lymphocytes % Monocytes % Eosinophils % Basophils % Nucleated RBC % Retic Count PT with INR INR PTT (Actin FS) VBG pH POC VBG pCO2 POC VBG pO2 VBG HCO3 VBG O2 Sat (Bonnie) VBG Base Excess Sodium Potassium Chloride Carbon Dioxide Anion Gap BUN Creatinine Est GFR (CKD-EPI)AfAm Est GFR (CKD-EPI)NonAf POC Glucometer 381 347 Random Glucose Hemoglobin A1c % Calcium Iron TIBC Iron Saturation Unsaturated IBC Ferritin Total Bilirubin AST ALT Alkaline Phosphatase Creatine Kinase Creatine Kinase Index CK-MB (CK-2) Troponin I Total Protein Albumin Triglycerides Cholesterol Total LDL Cholesterol HDL Cholesterol Lipase Vitamin B12 Serum Folate Beta-Hydroxybutyrate Urine Color Urine Appearance Urine pH Ur Specific [place] Urine Protein Urine Glucose (UA) Urine Ketones Urine Blood Urine Nitrite Urine Bilirubin Urine Urobilinogen Ur Leukocyte Esterase Stool Occult Blood Negative Influenza A (Rapid) Influenza B (Rapid) 06/06/19 06/06/19 06/06/19 09:25 10:48 10:48 WBC 5.9 RBC 3.71 L Hgb 11.0 L Hct 31.7 L MCV 85.5 MCH 29.6 MCHC 34.6 RDW 14.0 Plt Count 203 MPV 10.7 Absolute Neuts (auto) Neutrophils % Lymphocytes % Monocytes % Eosinophils % Basophils % Nucleated RBC % Retic Count 3.15 H PT with INR INR PTT (Actin FS) VBG pH POC VBG pCO2 POC VBG pO2 VBG HCO3 VBG O2 Sat (Bonnie) VBG Base Excess Sodium 135 L Potassium 4.3 Chloride 102 Carbon Dioxide 27 Anion Gap 6 L BUN 11.0 Creatinine 1.1 Est GFR (CKD-EPI)AfAm 100.27 Est GFR (CKD-EPI)NonAf 86.51 POC Glucometer Random Glucose 342 H Hemoglobin A1c % Calcium 8.3 L Iron 92 TIBC 220 L Iron Saturation 41 H Unsaturated IBC 128 L Ferritin 947.7 H Total Bilirubin 0.5 AST 40 H ALT 71 H Alkaline Phosphatase 77 Creatine Kinase 679 H Creatine Kinase Index 0.1 CK-MB (CK-2) 1.2 Troponin I Total Protein 6.3 L Albumin 3.5 Triglycerides 513 H Cholesterol 184 Total LDL Cholesterol 74 HDL Cholesterol 29 L Lipase 459 H Vitamin B12 568 Serum Folate 7 Beta-Hydroxybutyrate Urine Color Urine Appearance Urine pH Ur Specific [place] Urine Protein Urine Glucose (UA) Urine Ketones Urine Blood Urine Nitrite Urine Bilirubin Urine Urobilinogen Ur Leukocyte Esterase Stool Occult Blood Influenza A (Rapid) Negative Influenza B (Rapid) Negative 06/06/19 06/06/19 10:48 12:35 WBC RBC Hgb Hct MCV MCH MCHC RDW Plt Count MPV Absolute Neuts (auto) Neutrophils % Lymphocytes % Monocytes % Eosinophils % Basophils % Nucleated RBC % Retic Count PT with INR INR PTT (Actin FS) VBG pH POC VBG pCO2 POC VBG pO2 VBG HCO3 VBG O2 Sat (Bonnie) VBG Base Excess Sodium Potassium Chloride Carbon Dioxide Anion Gap BUN Creatinine Est GFR (CKD-EPI)AfAm Est GFR (CKD-EPI)NonAf POC Glucometer 289 Random Glucose Hemoglobin A1c % 15.0 H Calcium Iron TIBC Iron Saturation Unsaturated IBC Ferritin Total Bilirubin AST ALT Alkaline Phosphatase Creatine Kinase Creatine Kinase Index CK-MB (CK-2) Troponin I Total Protein Albumin Triglycerides Cholesterol Total LDL Cholesterol HDL Cholesterol Lipase Vitamin B12 Serum Folate Beta-Hydroxybutyrate Urine Color Urine Appearance Urine pH Ur Specific [place] Urine Protein Urine Glucose (UA) Urine Ketones Urine Blood Urine Nitrite Urine Bilirubin Urine Urobilinogen Ur Leukocyte Esterase Stool Occult Blood Influenza A (Rapid) Influenza B (Rapid) Active Medications Generic Name Dose Route Start Last Admin Trade Name Ranjana PRN Reason Stop Dose Admin Atorvastatin Calcium 40 mg 06/06/19 22:00 Lipitor - PO HS THOM Heparin Sodium (Porcine) 5,000 unit 06/06/19 06:00 06/06/19 13:26 Heparin - SQ 5,000 unit TID THOM Administration Sodium Chloride 1,000 mls @ 150 mls/hr 06/06/19 05:45 06/06/19 13:51 Normal Saline - IV 150 mls/hr ASDIR THOM Administration Insulin Aspart 1 vial 06/06/19 11:00 06/06/19 12:39 Novolog Vial Sliding Scale - SQ 8 units ACHS THOM Administration Protocol Insulin Aspart 25 units 06/06/19 16:30 Novolog Mix 70/30 Vial SQ BIDAC THOM Insulin Detemir 30 units 06/06/19 22:00 Levemir Vial SQ HS [facility] Lisinopril 10 mg 06/06/19 10:00 06/06/19 11:47 Prinivil PO 10 mg DAILY THOM Administration Metformin HCl 1,000 mg 06/06/19 16:30 Glucophage - PO BID@0700,1630 [facility] ASSESSMENT/PLAN: Problem List - Problems (1) Type 2 diabetes mellitus with hyperosmolarity with coma Assessment/Plan: non compliance due to difficulty obtaining insurance hmga1c elevated at 15 seen by search marketing specialist started on metformin 1000mb bid, short acting and long acting insulin patient being taught how to manage a sliding scale at home and self inject SW referral for help with patient pending insurance Code(s): E11.01 - TYPE 2 DIABETES MELLITUS WITH HYPEROSMOLARITY WITH COMA (2) Rhabdomyolysis Assessment/Plan: daily cpk on ivf hydration Code(s): M62.82 - RHABDOMYOLYSIS (3) BERTO (acute kidney injury) Assessment/Plan: renal consulted also with rhabdo on ivf Code(s): N17.9 - ACUTE KIDNEY FAILURE, UNSPECIFIED (4) Hyperglycemia Code(s): R73.9 - HYPERGLYCEMIA, UNSPECIFIED (5) Elevated lipase Assessment/Plan: no abdominal pain lipase initially elevated on admission, trended down abd ct without evidence of pancreatitis repeat lipase in a.m. , if still elevated, will consult GI Code(s): R74.8 - ABNORMAL LEVELS OF OTHER SERUM ENZYMES (6) Morbid obesity Code(s): E66.01 - MORBID (SEVERE) OBESITY DUE TO EXCESS CALORIES (7) Hyperlipidemia Assessment/Plan: patient was given prescription for lipitor but unable to afford it due to cost. low cholesterol diet weight loss encouraged Code(s): E78.5 - HYPERLIPIDEMIA, UNSPECIFIED (8) High triglycerides Assessment/Plan: elevated in the 500s start on lipitor once cpk normalizes Code(s): E78.1 - PURE HYPERGLYCERIDEMIA (9) DVT prophylaxis Assessment/Plan: heparin tid Code(s): Z29.9 - ENCOUNTER FOR PROPHYLACTIC MEASURES, UNSPECIFIED Visit type - Emergency Visit Emergency Visit: Yes ED Registration Date: 06/05/19 Care time: The patient presented to the Emergency Department on the above date and was hospitalized for further evaluation of their emergent condition. - New Patient This patient is new to me today: Yes Date on this admission: 06/06/19 - Critical Care Critical Care patient: No - Discharge Referral Referred to [facility] Med P.C.: No
[2019-06-06] MEDS: metFORMIN HCL 500 MG TABLET (FP) PO SCH (16:24)
[2019-06-06] MEDS: INSULIN (NOVOLOG MIX 70/30) 100 UNITS/ML MDV SQ SCH (16:25)
[2019-06-06] MEDS ORDERED: INSULIN (NOVOLOG) ASPART 100 UNITS/ML 10ML VIAL ONE (21:11)
[2019-06-06] MEDS ORDERED: INSULIN (LEVEMIR) 100 UNITS/ML UNITS SQ SCH (22:00)
[2019-06-06] MEDS ORDERED: ATORVASTATIN CA 40 MG TABLET (FP) PO SCH (22:00)
[2019-06-06] MEDS: INSULIN (LEVEMIR) 100 UNITS/ML UNITS SQ SCH (22:06)
[2019-06-07] MEDS: SODIUM CHLORIDE 1,000 ML IV SCH (05:13)
[2019-06-07] MEDS: HEPARIN NA (PORCINE) 5,000 UNITS/ML 1ML VIAL SQ SCH ×3 (06:30→21:23)
[2019-06-07] MEDS: metFORMIN HCL 500 MG TABLET (FP) PO SCH ×2 (06:33→17:22)
[2019-06-07] MEDS: INSULIN (NOVOLOG MIX 70/30) 100 UNITS/ML MDV SQ SCH ×2 (06:34→17:22)
[2019-06-07] MEDS: INSULIN SLIDING SCALE (NOVOLOG) 1 VIAL SQ SCH ×4 (06:40→21:24)
[2019-06-07 07:50] LABS: BASO % 0.5 % (0-2.0); EOS % 2.6 % (0-4.5); HEMATOCRIT 29.1 % (35.4-49); HEMOGLOBIN 10.1 GM/dL (11.7-16.9); MCH 29.6 pg (25.7-33.7); MCHC 34.6 g/dl (32.0-35.9); MEAN CELL VOLUME 85.4 fl (80-96); MEAN PLT VOLUME 10.6 fl (7.5-11.1); MONO % 10.3 % (3.8-10.2); NEUT % 52.6 % (42.8-82.8); PLATELET COUNT 216 K/MM3 (134-434); RBC 3.41 M/mm3 (4.00-5.60); RDW 13.8 % (11.9-15.9); WHITE BLOOD COUNT 6.3 K/mm3 (4.0-10.0)
[2019-06-07 08:13] LABS: ALBUMIN 2.9 g/dl (3.4-5.0); BILIRUBIN,TOTAL 0.4 mg/dL (0.2-1); BLOOD UREA NITROGEN 6.6 mg/dL (7-18); CALCIUM 7.8 mg/dL (8.5-10.1); CREATININE 1.1 mg/dL (0.55-1.3); MAGNESIUM 1.8 mg/dL (1.8-2.4); TOT PROT 5.2 g/dl (6.4-8.2)
[2019-06-07 08:18] LABS: LIPASE 328 U/L (73-393)
[2019-06-07] MEDS: LISINOPRIL 10 MG TABLET (FP) PO SCH (10:08)
--- NOTE | 2019-06-07 16:03 | PN ---
Physical Exam: SUBJECTIVE: Patient seen and examined at the bedside. denies any malaise. verbalizes understanding of teaching of BGMs and insulin administration. OBJECTIVE: Patient is a 33 year old male with a past medical history of newly diagnosed DM , obesity, GERD presented to the ED due to increased urinary frequency, increased thirst, chills and abd pain. Patient was admitted to [facility] on 05/31 for lightheadedness, dry mouth, increased urinary frequency and lethargy. He states he was in the ICU for 2 days due to high glucose levels (over 1000) and was then monitored on the floors until he was discharged on . He was unable to fill any of the prescriptions given to him including insulin secondary to lack of insurance. He states he has medicaid and it should be active within 48 hours. problem list: hyperglycemia with elevated hmga1c elevated lipid panel elevated lipase rhabdomyolysis morbid obesity Vital Signs Period Temp Pulse Resp BP Sys/Bernard Pulse Ox Last 24 Hr 97.8 F-98.3 F 69-96 18-20 127-145/61-71 100-100 GENERAL: The patient is awake, alert, and fully oriented, in no acute distress. HEAD: Normal with no signs of trauma. EYES: PERRL, extraocular movements intact, sclera anicteric, conjunctiva clear. No ptosis. ENT: Ears normal, nares patent, oropharynx clear without exudates NECK: Trachea midline, full range of motion, supple. LUNGS: Breath sounds equal, clear to auscultation bilaterally HEART: Regular rate and rhythm, S1, S2 without murmur, rub or gallop. ABDOMEN: Soft, nontender, nondistended, normoactive bowel sounds EXTREMITIES: no edema. NEUROLOGICAL: C Normal speech, gait not observed. Laboratory Results - last 24 hr 06/06/19 06/06/19 06/07/19 16:22 22:00 06:38 WBC RBC Hgb Hct MCV MCH MCHC RDW Plt Count MPV Absolute Neuts (auto) Neutrophils % Lymphocytes % Monocytes % Eosinophils % Basophils % Nucleated RBC % Sodium Potassium Chloride Carbon Dioxide Anion Gap BUN Creatinine Est GFR (CKD-EPI)AfAm Est GFR (CKD-EPI)NonAf POC Glucometer 271 243 228 Random Glucose Calcium Magnesium Total Bilirubin AST ALT Alkaline Phosphatase Creatine Kinase Creatine Kinase Index CK-MB (CK-2) Total Protein Albumin Lipase 06/07/19 06/07/19 06/07/19 06:45 06:45 06:45 WBC 6.3 RBC 3.41 L Hgb 10.1 L Hct 29.1 L MCV 85.4 MCH 29.6 MCHC 34.6 RDW 13.8 Plt Count 216 MPV 10.6 Absolute Neuts (auto) 3.3 Neutrophils % 52.6 Lymphocytes % 34.0 Monocytes % 10.3 H Eosinophils % 2.6 D Basophils % 0.5 Nucleated RBC % 0 Sodium 138 Potassium 4.0 Chloride 107 Carbon Dioxide 25 Anion Gap 6 L BUN 6.6 L Creatinine 1.1 Est GFR (CKD-EPI)AfAm 100.27 Est GFR (CKD-EPI)NonAf 86.51 POC Glucometer Random Glucose 269 H Calcium 7.8 L Magnesium 1.8 Total Bilirubin 0.4 AST 28 ALT 58 Alkaline Phosphatase 55 Creatine Kinase 401 H Creatine Kinase Index No Result Required. CK-MB (CK-2) < 1.0 Total Protein 5.2 L Albumin 2.9 L Lipase 328 06/07/19 11:59 WBC RBC Hgb Hct MCV MCH MCHC RDW Plt Count MPV Absolute Neuts (auto) Neutrophils % Lymphocytes % Monocytes % Eosinophils % Basophils % Nucleated RBC % Sodium Potassium Chloride Carbon Dioxide Anion Gap BUN Creatinine Est GFR (CKD-EPI)AfAm Est GFR (CKD-EPI)NonAf POC Glucometer 126 Random Glucose Calcium Magnesium Total Bilirubin AST ALT Alkaline Phosphatase Creatine Kinase Creatine Kinase Index CK-MB (CK-2) Total Protein Albumin Lipase Active Medications Generic Name Dose Route Start Last Admin Trade Name Freq PRN Reason Stop Dose Admin Heparin Sodium (Porcine) 5,000 unit 06/06/19 06:00 06/07/19 14:59 Heparin - SQ 5,000 unit TID THOM Administration Sodium Chloride 1,000 mls @ 150 mls/hr 06/06/19 05:45 06/07/19 05:13 Normal Saline - IV 150 mls/hr ASDIR THOM Administration Insulin Aspart 1 vial 06/06/19 11:00 06/07/19 12:10 Novolog Vial Sliding Scale - SQ Not Given ACHS [facility] Protocol Insulin Aspart 25 units 06/06/19 16:30 06/07/19 06:34 Novolog Mix 70/30 Vial SQ 25 units BIDAC THOM Administration Insulin Detemir 30 units 06/06/19 22:00 06/06/19 22:06 Levemir Vial SQ 30 units HS THOM Administration Lisinopril 10 mg 06/06/19 10:00 06/07/19 10:08 Prinivil PO 10 mg DAILY THOM Administration Metformin HCl 1,000 mg 06/06/19 16:30 06/07/19 06:33 Glucophage - PO 1,000 mg BID@0700,1630 THOM Administration ASSESSMENT/PLAN: Problem List - Problems (1) Type 2 diabetes mellitus with hyperosmolarity with coma Assessment/Plan: non compliance due to difficulty obtaining insurance hmga1c elevated at 15 seen by ug designer started on metformin 1000mb bid, short acting and long acting insulin patient being taught how to manage a sliding scale at home and self inject SW referral for help with patient pending insurance Code(s): E11.01 - TYPE 2 DIABETES MELLITUS WITH HYPEROSMOLARITY WITH COMA (2) Rhabdomyolysis Assessment/Plan: improving cpk, continue ivf Code(s): M62.82 - RHABDOMYOLYSIS (3) BERTO (acute kidney injury) Assessment/Plan: renal consulted also with rhabdo on ivf Code(s): N17.9 - ACUTE KIDNEY FAILURE, UNSPECIFIED (4) Hyperglycemia Code(s): R73.9 - HYPERGLYCEMIA, UNSPECIFIED (5) Elevated lipase Assessment/Plan: lipase normalized Code(s): R74.8 - ABNORMAL LEVELS OF OTHER SERUM ENZYMES (6) Morbid obesity Code(s): E66.01 - MORBID (SEVERE) OBESITY DUE TO EXCESS CALORIES (7) Hyperlipidemia Assessment/Plan: patient was given prescription for lipitor but unable to afford it due to cost. low cholesterol diet weight loss encouraged Code(s): E78.5 - HYPERLIPIDEMIA, UNSPECIFIED (8) High triglycerides Assessment/Plan: elevated in the 500s start on lipitor once cpk normalizes Code(s): E78.1 - PURE HYPERGLYCERIDEMIA (9) DVT prophylaxis Assessment/Plan: heparin tid Code(s): Z29.9 - ENCOUNTER FOR PROPHYLACTIC MEASURES, UNSPECIFIED Visit type - Emergency Visit Emergency Visit: Yes ED Registration Date: 06/05/19 Care time: The patient presented to the Emergency Department on the above date and was hospitalized for further evaluation of their emergent condition. - New Patient This patient is new to me today: No - Critical Care Critical Care patient: No - Discharge Referral Referred to [facility] Med P.C.: No
[2019-06-07] MEDS ORDERED: SODIUM CHLORIDE 1,000 ML IV SCH (17:11)
[2019-06-07] MEDS ORDERED: INSULIN (NOVOLOG) ASPART 100 UNITS/ML 10ML VIAL ONE ×2 (17:25→20:46)
[2019-06-07] MEDS: ACETAMINOPHEN 325 MG TABLET (FP) PO PRN (17:29)
[2019-06-07] MEDS: INSULIN (LEVEMIR) 100 UNITS/ML UNITS SQ SCH (21:23)
--- NOTE | 2019-06-07 23:49 | PN ---
Progress Note (short form) - Note Progress Note: covering dr huff Problem 1. BERTO 2. dehydration 3. DM 4. gerd 5. obesity Active Medications Acetaminophen (Tylenol -) 650 mg PO Q6H PRN PRN Reason: HEADACHE Last Admin: 06/07/19 17:29 Dose: 650 mg Heparin Sodium (Porcine) (Heparin -) 5,000 unit SQ TID [facility] Last Admin: 06/07/19 21:23 Dose: 5,000 unit Sodium Chloride (Normal Saline -) 1,000 mls @ 75 mls/hr IV ASDIR [facility] Last Admin: 06/07/19 17:32 Dose: 75 mls/hr Insulin Aspart (Novolog Vial Sliding Scale -) 1 vial SQ ACHS [facility]; Protocol Last Admin: 06/07/19 21:24 Dose: 6 units Insulin Aspart (Novolog Mix 70/30 Vial) 25 units SQ BIDAC [facility] Last Admin: 06/07/19 17:22 Dose: 25 units Insulin Detemir (Levemir Vial) 30 units SQ HS [facility] Last Admin: 06/07/19 21:23 Dose: 30 units Lisinopril (Prinivil) 10 mg PO DAILY [facility] Last Admin: 06/07/19 10:08 Dose: 10 mg Metformin HCl (Glucophage -) 1,000 mg PO BID@0700,1630 [facility] Last Admin: 06/07/19 17:22 Dose: 1,000 mg Last Vital Signs Temp Pulse Resp BP Pulse Ox 98.0 F 88 20 131/73 100 06/07/19 21:00 06/07/19 21:00 06/07/19 21:00 06/07/19 21:00 06/07/19 21:00 CBC, BMP 06/07/19 06:45 06/07/19 06:45 IMP- - renal function better - negative blood or protein on ua - renal ultrasound reviewed - monitor lytes - berto likely from dehydration secondary to uncontrolled DM
[2019-06-08] MEDS: HEPARIN NA (PORCINE) 5,000 UNITS/ML 1ML VIAL SQ SCH ×3 (06:29→21:23)
[2019-06-08] MEDS: metFORMIN HCL 500 MG TABLET (FP) PO SCH ×2 (06:30→17:14)
[2019-06-08] MEDS: INSULIN SLIDING SCALE (NOVOLOG) 1 VIAL SQ SCH ×4 (06:30→21:28)
[2019-06-08] MEDS: INSULIN (NOVOLOG MIX 70/30) 100 UNITS/ML MDV SQ SCH ×2 (06:30→17:13)
[2019-06-08 07:56] LABS: BASO % 0.4 % (0-2.0); HEMATOCRIT 28.2 % (35.4-49); HEMOGLOBIN 9.8 GM/dL (11.7-16.9); LYMPH % 31.6 % (8-40); MCH 29.9 pg (25.7-33.7); MCHC 34.8 g/dl (32.0-35.9); MEAN CELL VOLUME 85.9 fl (80-96); MEAN PLT VOLUME 10.4 fl (7.5-11.1); MONO % 11.3 % (3.8-10.2); NEUT % 54.7 % (42.8-82.8); PLATELET COUNT 235 K/MM3 (134-434); RBC 3.28 M/mm3 (4.00-5.60); RDW 13.9 % (11.9-15.9); WHITE BLOOD COUNT 5.7 K/mm3 (4.0-10.0)
[2019-06-08 08:12] LABS: ALBUMIN 2.9 g/dl (3.4-5.0); BILIRUBIN,TOTAL 0.3 mg/dL (0.2-1); BLOOD UREA NITROGEN 5.9 mg/dL (7-18); CALCIUM 7.9 mg/dL (8.5-10.1); CREATININE 1.1 mg/dL (0.55-1.3); POTASSIUM 3.9 mmol/L (3.5-5.1); TOT PROT 5.2 g/dl (6.4-8.2)
[2019-06-08] MEDS: LISINOPRIL 10 MG TABLET (FP) PO SCH (09:38)
[2019-06-08 15:44] LABS: URINE APPEARANCE CLEAR; URINE BILIRUBIN NEGATIVE (NEGATIVE); URINE COLOR YELLOW; URINE GLUCOSE (UA) TRACE (NEGATIVE); URINE KETONE NEGATIVE (NEGATIVE); URINE LEUK ESTERASE NEGATIVE (NEGATIVE); URINE NITRITE NEGATIVE (NEGATIVE); URINE PROTEIN NEGATIVE (NEGATIVE); URINE UROBILINOGEN 0.2 mg/dL (0.2-1.0)
[2019-06-08] MEDS ORDERED: INSULIN (NOVOLOG MIX 70/30) 100 UNITS/ML MDV SQ SCH (16:03)
--- NOTE | 2019-06-08 16:31 | PN ---
Progress Note, Physician Chief Complaint: no complaint eating well,ambulating - Current Medication List Current Medications: Active Medications Acetaminophen (Tylenol -) 650 mg PO Q6H PRN PRN Reason: HEADACHE Last Admin: 06/07/19 17:29 Dose: 650 mg Heparin Sodium (Porcine) (Heparin -) 5,000 unit SQ TID [facility] Last Admin: 06/08/19 14:14 Dose: Not Given Insulin Aspart (Novolog Vial Sliding Scale -) 1 vial SQ ACHS [facility]; Protocol Last Admin: 06/08/19 12:19 Dose: 4 units Insulin Aspart (Novolog Mix 70/30 Vial) 30 units SQ BIDAC [facility] Insulin Detemir (Levemir Vial) 30 units SQ HS [facility] Last Admin: 06/07/19 21:23 Dose: 30 units Lisinopril (Prinivil) 10 mg PO DAILY [facility] Last Admin: 06/08/19 09:38 Dose: 10 mg Metformin HCl (Glucophage -) 1,000 mg PO BID@0700,1630 [facility] Last Admin: 06/08/19 06:30 Dose: 1,000 mg - Objective Vital Signs: Vital Signs Temperature 98.2 F 06/08/19 13:32 Pulse Rate 77 06/08/19 13:32 Respiratory Rate 20 06/08/19 13:32 Blood Pressure 126/59 L 06/08/19 13:32 O2 Sat by Pulse Oximetry (%) 100 06/08/19 09:00 Constitutional: Yes: Calm Eyes: Yes: EOM Intact HENT: Yes: Normocephalic Neck: Yes: Trachea Midline Cardiovascular: Yes: Regular Rate and Rhythm Respiratory: Yes: CTA Bilaterally Gastrointestinal: Yes: Normal Bowel Sounds ...Rectal Exam: Yes: Deferred Genitourinary: Yes: WNL Breast(s): Yes: WNL Musculoskeletal: Yes: WNL Extremities: Yes: WNL Edema: No Peripheral Pulses WNL: Yes Integumentary: Yes: WNL Neurological: Yes: WNL ...Motor Strength: WNL Labs: CBC, BMP 06/08/19 07:15 06/08/19 07:15 INR, PTT INR 0.88 (0.83-1.09) 06/05/19 22:50 Problem List - Problems (1) BERTO (acute kidney injury) Problems reviewed: Yes Code(s): N17.9 - ACUTE KIDNEY FAILURE, UNSPECIFIED (2) Hyperglycemia Code(s): R73.9 - HYPERGLYCEMIA, UNSPECIFIED (3) Type 2 diabetes mellitus with hyperosmolarity with coma Code(s): E11.01 - TYPE 2 DIABETES MELLITUS WITH HYPEROSMOLARITY WITH COMA Assessment/Plan Current Active Problems BERTO (acute kidney injury) (Acute) DVT prophylaxis (Acute) Elevated lipase (Acute) High triglycerides (Acute) Hyperglycemia (Acute) Hyperlipidemia (Acute) Morbid obesity (Acute) Rhabdomyolysis (Acute) Type 2 diabetes mellitus with hyperosmolarity with coma (Acute) Laboratory Results - last 24 hr 06/06/19 06/07/19 06/07/19 10:48 16:53 21:21 WBC RBC Hgb Hct MCV MCH MCHC RDW Plt Count MPV Absolute Neuts (auto) Neutrophils % Lymphocytes % Monocytes % Eosinophils % Basophils % Nucleated RBC % Sodium Potassium Chloride Carbon Dioxide Anion Gap BUN Creatinine Est GFR (CKD-EPI)AfAm Est GFR (CKD-EPI)NonAf POC Glucometer 212 208 Random Glucose Calcium Transferrin 177 L Total Bilirubin AST ALT Alkaline Phosphatase Creatine Kinase Creatine Kinase Index CK-MB (CK-2) Total Protein Albumin Urine Color Urine Appearance Urine pH Ur Specific [place] Urine Protein Urine Glucose (UA) Urine Ketones Urine Blood Urine Nitrite Urine Bilirubin Urine Urobilinogen Ur Leukocyte Esterase 06/08/19 06/08/19 06/08/19 06:28 07:15 07:15 WBC 5.7 RBC 3.28 L Hgb 9.8 L Hct 28.2 L MCV 85.9 MCH 29.9 MCHC 34.8 RDW 13.9 Plt Count 235 MPV 10.4 Absolute Neuts (auto) 3.1 Neutrophils % 54.7 Lymphocytes % 31.6 Monocytes % 11.3 H Eosinophils % 2.0 Basophils % 0.4 Nucleated RBC % 0 Sodium 140 Potassium 3.9 Chloride 108 H Carbon Dioxide 26 Anion Gap 6 L BUN 5.9 L Creatinine 1.1 Est GFR (CKD-EPI)AfAm 100.27 Est GFR (CKD-EPI)NonAf 86.51 POC Glucometer 192 Random Glucose 198 H Calcium 7.9 L Transferrin Total Bilirubin 0.3 AST 24 ALT 50 Alkaline Phosphatase 49 Creatine Kinase 307 Creatine Kinase Index 0.3 CK-MB (CK-2) 1.0 Total Protein 5.2 L Albumin 2.9 L Urine Color Urine Appearance Urine pH Ur Specific [place] Urine Protein Urine Glucose (UA) Urine Ketones Urine Blood Urine Nitrite Urine Bilirubin Urine Urobilinogen Ur Leukocyte Esterase 06/08/19 06/08/19 10:20 12:06 WBC RBC Hgb Hct MCV MCH MCHC RDW Plt Count MPV Absolute Neuts (auto) Neutrophils % Lymphocytes % Monocytes % Eosinophils % Basophils % Nucleated RBC % Sodium Potassium Chloride Carbon Dioxide Anion Gap BUN Creatinine Est GFR (CKD-EPI)AfAm Est GFR (CKD-EPI)NonAf POC Glucometer 171 Random Glucose Calcium Transferrin Total Bilirubin AST ALT Alkaline Phosphatase Creatine Kinase Creatine Kinase Index CK-MB (CK-2) Total Protein Albumin Urine Color Yellow Urine Appearance Clear Urine pH 5.0 Ur Specific [place] 1.009 L Urine Protein Negative Urine Glucose (UA) Trace Urine Ketones Negative Urine Blood Negative Urine Nitrite Negative Urine Bilirubin Negative Urine Urobilinogen 0.2 Ur Leukocyte Esterase Negative plan: dc ivfluid novolog 70/30 bid doses will need titration out patient may use sliding scale 100-200 =10 units 201-300=20 units 301-350 30 units metformin 1gm bid
--- NOTE | 2019-06-08 17:11 | PN ---
Progress Note (short form) - Note Progress Note: covering dr huff Problem 1. BERTO 2. dehydration 3. DM 4. gerd 5. obesity Active Medications Acetaminophen (Tylenol -) 650 mg PO Q6H PRN PRN Reason: HEADACHE Last Admin: 06/07/19 17:29 Dose: 650 mg Heparin Sodium (Porcine) (Heparin -) 5,000 unit SQ TID [facility] Last Admin: 06/08/19 14:14 Dose: Not Given Insulin Aspart (Novolog Vial Sliding Scale -) 1 vial SQ ACHS [facility]; Protocol Last Admin: 06/08/19 12:19 Dose: 4 units Insulin Aspart (Novolog Mix 70/30 Vial) 30 units SQ BIDAC [facility] Lisinopril (Prinivil) 10 mg PO DAILY [facility] Last Admin: 06/08/19 09:38 Dose: 10 mg Metformin HCl (Glucophage -) 1,000 mg PO BID@0700,1630 [facility] Last Admin: 06/08/19 06:30 Dose: 1,000 mg Last Vital Signs Temp Pulse Resp BP Pulse Ox 98.2 F 77 20 126/59 L 100 06/08/19 13:32 06/08/19 13:32 06/08/19 13:32 06/08/19 13:32 06/08/19 09:00 alert in nad Lungs clear Heart reg Abd soft nontender Ext no edema CBC, BMP 06/08/19 07:15 06/08/19 07:15 CBC, BMP 06/07/19 06:45 06/07/19 06:45 IMP- s/p dehydration- much better s/p berto s/p osmotic diuresis renal function better negative blood or protein on ua renal ultrasound reviewed - Plan- patient instructed re hydration measures and importance of follow up
--- NOTE | 2019-06-08 17:39 | PN ---
Physical Exam: SUBJECTIVE: Patient seen and examined OBJECTIVE: Patient is a 33 year old male with a past medical history of newly diagnosed DM , obesity, GERD presented to the ED due to increased urinary frequency, increased thirst, chills and abd pain. Patient was admitted to [facility] on 05/31 for lightheadedness, dry mouth, increased urinary frequency and lethargy. He states he was in the ICU for 2 days due to high glucose levels (over 1000) and was then monitored on the floors until he was discharged on . He was unable to fill any of the prescriptions given to him including insulin secondary to lack of insurance. He states he has medicaid and it should be active within 48 hours. problem list: hyperglycemia with elevated hmga1c elevated lipid panel elevated lipase rhabdomyolysis morbid obesity Vital Signs Period Temp Pulse Resp BP Sys/Bernard Pulse Ox Last 24 Hr 97.8 F-98.2 F 74-88 20-20 126-144/59-82 100-100 GENERAL: The patient is awake, alert, and fully oriented, in no acute distress. HEAD: Normal with no signs of trauma. EYES: PERRL, extraocular movements intact, sclera anicteric, conjunctiva clear. No ptosis. ENT: Ears normal, nares patent, oropharynx clear without exudates NECK: Trachea midline, full range of motion, supple. LUNGS: Breath sounds equal, clear to auscultation bilaterally HEART: Regular rate and rhythm, S1, S2 without murmur, rub or gallop. ABDOMEN: Soft, nontender, nondistended, normoactive bowel sounds EXTREMITIES: no edema. NEUROLOGICAL: Normal speech, gait not observed Laboratory Results - last 24 hr 06/06/19 06/07/19 06/08/19 10:48 21:21 06:28 WBC RBC Hgb Hct MCV MCH MCHC RDW Plt Count MPV Absolute Neuts (auto) Neutrophils % Lymphocytes % Monocytes % Eosinophils % Basophils % Nucleated RBC % Sodium Potassium Chloride Carbon Dioxide Anion Gap BUN Creatinine Est GFR (CKD-EPI)AfAm Est GFR (CKD-EPI)NonAf POC Glucometer 208 192 Random Glucose Calcium Transferrin 177 L Total Bilirubin AST ALT Alkaline Phosphatase Creatine Kinase Creatine Kinase Index CK-MB (CK-2) Total Protein Albumin Urine Color Urine Appearance Urine pH Ur Specific [place] Urine Protein Urine Glucose (UA) Urine Ketones Urine Blood Urine Nitrite Urine Bilirubin Urine Urobilinogen Ur Leukocyte Esterase 06/08/19 06/08/19 06/08/19 07:15 07:15 10:20 WBC 5.7 RBC 3.28 L Hgb 9.8 L Hct 28.2 L MCV 85.9 MCH 29.9 MCHC 34.8 RDW 13.9 Plt Count 235 MPV 10.4 Absolute Neuts (auto) 3.1 Neutrophils % 54.7 Lymphocytes % 31.6 Monocytes % 11.3 H Eosinophils % 2.0 Basophils % 0.4 Nucleated RBC % 0 Sodium 140 Potassium 3.9 Chloride 108 H Carbon Dioxide 26 Anion Gap 6 L BUN 5.9 L Creatinine 1.1 Est GFR (CKD-EPI)AfAm 100.27 Est GFR (CKD-EPI)NonAf 86.51 POC Glucometer Random Glucose 198 H Calcium 7.9 L Transferrin Total Bilirubin 0.3 AST 24 ALT 50 Alkaline Phosphatase 49 Creatine Kinase 307 Creatine Kinase Index 0.3 CK-MB (CK-2) 1.0 Total Protein 5.2 L Albumin 2.9 L Urine Color Yellow Urine Appearance Clear Urine pH 5.0 Ur Specific [place] 1.009 L Urine Protein Negative Urine Glucose (UA) Trace Urine Ketones Negative Urine Blood Negative Urine Nitrite Negative Urine Bilirubin Negative Urine Urobilinogen 0.2 Ur Leukocyte Esterase Negative 06/08/19 06/08/19 12:06 16:40 WBC RBC Hgb Hct MCV MCH MCHC RDW Plt Count MPV Absolute Neuts (auto) Neutrophils % Lymphocytes % Monocytes % Eosinophils % Basophils % Nucleated RBC % Sodium Potassium Chloride Carbon Dioxide Anion Gap BUN Creatinine Est GFR (CKD-EPI)AfAm Est GFR (CKD-EPI)NonAf POC Glucometer 171 207 Random Glucose Calcium Transferrin Total Bilirubin AST ALT Alkaline Phosphatase Creatine Kinase Creatine Kinase Index CK-MB (CK-2) Total Protein Albumin Urine Color Urine Appearance Urine pH Ur Specific [place] Urine Protein Urine Glucose (UA) Urine Ketones Urine Blood Urine Nitrite Urine Bilirubin Urine Urobilinogen Ur Leukocyte Esterase Active Medications Generic Name Dose Route Start Last Admin Trade Name Freq PRN Reason Stop Dose Admin Acetaminophen 650 mg 06/07/19 17:10 06/07/19 17:29 Tylenol - PO 650 mg Q6H PRN Administration HEADACHE Heparin Sodium (Porcine) 5,000 unit 06/06/19 06:00 06/08/19 14:14 Heparin - SQ Not Given TID [facility] Insulin Aspart 1 vial 06/06/19 11:00 06/08/19 17:14 Novolog Vial Sliding Scale - SQ 6 units ACHS THOM Administration Protocol Insulin Aspart 30 units 06/08/19 16:30 06/08/19 17:13 Novolog Mix 70/30 Vial SQ 30 units BIDAC THOM Administration Lisinopril 10 mg 06/06/19 10:00 06/08/19 09:38 Prinivil PO 10 mg DAILY THOM Administration Metformin HCl 1,000 mg 06/06/19 16:30 06/08/19 17:14 Glucophage - PO 1,000 mg BID@0700,1630 THOM Administration ASSESSMENT/PLAN: Problem List - Problems (1) Type 2 diabetes mellitus with hyperosmolarity with coma Assessment/Plan: non compliance due to difficulty obtaining insurance hmga1c elevated at 13 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 started on metformin 1000mb bid, short acting and long acting insulin patient being taught how to manage a sliding scale at home and self inject SW referral for help with patient pending insurance Code(s): E11.01 - TYPE 2 DIABETES MELLITUS WITH HYPEROSMOLARITY WITH COMA (2) Rhabdomyolysis Assessment/Plan: resolved, stop ivf Code(s): M62.82 - RHABDOMYOLYSIS (3) BERTO (acute kidney injury) Assessment/Plan: resolved Code(s): N17.9 - ACUTE KIDNEY FAILURE, UNSPECIFIED (4) Hyperglycemia Code(s): R73.9 - HYPERGLYCEMIA, UNSPECIFIED (5) Elevated lipase Assessment/Plan: lipase normalized Code(s): R74.8 - ABNORMAL LEVELS OF OTHER SERUM ENZYMES (6) Morbid obesity Code(s): E66.01 - MORBID (SEVERE) OBESITY DUE TO EXCESS CALORIES (7) Hyperlipidemia Assessment/Plan: patient was given prescription for lipitor but unable to afford it due to cost. low cholesterol diet weight loss encouraged Code(s): E78.5 - HYPERLIPIDEMIA, UNSPECIFIED (8) High triglycerides Assessment/Plan: elevated in the 500s start on lipitor Code(s): E78.1 - PURE HYPERGLYCERIDEMIA (9) DVT prophylaxis Assessment/Plan: heparin tid Code(s): Z29.9 - ENCOUNTER FOR PROPHYLACTIC MEASURES, UNSPECIFIED Visit type - Emergency Visit Emergency Visit: Yes ED Registration Date: 06/05/19 Care time: The patient presented to the Emergency Department on the above date and was hospitalized for further evaluation of their emergent condition. - New Patient This patient is new to me today: No - Critical Care Critical Care patient: No - Discharge Referral Referred to [facility] Med P.C.: No
[2019-06-08] MEDS ORDERED: INSULIN (NOVOLOG) ASPART 100 UNITS/ML 10ML VIAL ONE (20:43)
[2019-06-08] MEDS ORDERED: ATORVASTATIN CA 40 MG TABLET (FP) PO SCH (22:00)
[2019-06-09] MEDS: HEPARIN NA (PORCINE) 5,000 UNITS/ML 1ML VIAL SQ SCH ×2 (05:20→13:04)
[2019-06-09] MEDS: metFORMIN HCL 500 MG TABLET (FP) PO SCH (06:21)
[2019-06-09] MEDS: INSULIN (NOVOLOG MIX 70/30) 100 UNITS/ML MDV SQ SCH (06:22)
[2019-06-09] MEDS: INSULIN SLIDING SCALE (NOVOLOG) 1 VIAL SQ SCH ×2 (06:22→11:04)
[2019-06-09 08:29] LABS: BASO % 0.7 % (0-2.0); EOS % 1.6 % (0-4.5); HEMATOCRIT 30.2 % (35.4-49); HEMOGLOBIN 10.5 GM/dL (11.7-16.9); LYMPH % 26.8 % (8-40); MCH 30.1 pg (25.7-33.7); MCHC 34.9 g/dl (32.0-35.9); MEAN CELL VOLUME 86.2 fl (80-96); MEAN PLT VOLUME 9.7 fl (7.5-11.1); MONO % 11.6 % (3.8-10.2); NEUT % 59.3 % (42.8-82.8); PLATELET COUNT 242 K/MM3 (134-434); RBC 3.51 M/mm3 (4.00-5.60); RDW 14.3 % (11.9-15.9); WHITE BLOOD COUNT 5.5 K/mm3 (4.0-10.0)
[2019-06-09 08:53] LABS: ALBUMIN 3.4 g/dl (3.4-5.0); BILIRUBIN,TOTAL 0.4 mg/dL (0.2-1); BLOOD UREA NITROGEN 6.8 mg/dL (7-18); CALCIUM 8.4 mg/dL (8.5-10.1); CREATININE 1.2 mg/dL (0.55-1.3); POTASSIUM 4.2 mmol/L (3.5-5.1); TOT PROT 5.8 g/dl (6.4-8.2)
[2019-06-09] MEDS: LISINOPRIL 10 MG TABLET (FP) PO SCH (09:40)
--- NOTE | 2019-06-09 12:21 | DS ---
Physical Exam: SUBJECTIVE: Patient seen and examined OBJECTIVE: Patient is a 33 year old male with a past medical history of newly diagnosed DM, obesity, GERD presented to the ED due to increased urinary frequency, increased thirst, chills and abd pain. Patient was admitted to [facility] on 05/31 for lightheadedness, dry mouth, increased urinary frequency and lethargy. He states he was in the ICU for 2 days due to high glucose levels (over 1000) and was then monitored on the floors until he was discharged on 06/04. He was unable to fill any of the prescriptions given to him including insulin secondary to lack of insurance. He states he has medicaid and it should be active within 48 hours. patient approved by hospital administration to received insulin free of charge. Patient has a follow up appointment with new PCP. problem list: hyperglycemia with elevated hmga1c elevated lipid panel elevated lipase rhabdomyolysis morbid obesity Vital Signs Period Temp Pulse Resp BP Sys/Bernard Pulse Ox Last 24 Hr 97.6 F-98.3 F 73-82 18-20 116-134/50-75 100-100 PHYSICAL EXAM GENERAL: The patient is awake, alert, and fully oriented, in no acute distress. HEAD: Normal with no signs of trauma. EYES: PERRL, extraocular movements intact, sclera anicteric, conjunctiva clear. No ptosis. ENT: Ears normal, nares patent, oropharynx clear without exudates NECK: Trachea midline, full range of motion, supple. LUNGS: Breath sounds equal, clear to auscultation bilaterally HEART: Regular rate and rhythm, S1, S2 without murmur, rub or gallop. ABDOMEN: Soft, nontender, nondistended, normoactive bowel sounds EXTREMITIES: no edema. NEUROLOGICAL: Normal speech, gait not observed LABS Laboratory Results - last 24 hr 06/08/19 06/08/19 06/08/19 07:15 10:20 16:40 WBC RBC Hgb Hct MCV MCH MCHC RDW Plt Count MPV Absolute Neuts (auto) Neutrophils % Lymphocytes % Monocytes % Eosinophils % Basophils % Nucleated RBC % Sodium 140 Potassium 3.9 Chloride 108 H Carbon Dioxide 26 Anion Gap 6 L BUN 5.9 L Creatinine 1.1 Est GFR (CKD-EPI)AfAm 100.27 Est GFR (CKD-EPI)NonAf 86.51 POC Glucometer 207 Random Glucose 198 H Calcium 7.9 L Total Bilirubin 0.3 AST 24 ALT 50 Alkaline Phosphatase 49 Creatine Kinase 307 Creatine Kinase Index 0.3 CK-MB (CK-2) 1.0 Total Protein 5.2 L Albumin 2.9 L Urine Color Yellow Urine Appearance Clear Urine pH 5.0 Ur Specific [place] 1.009 L Urine Protein Negative Urine Glucose (UA) Trace Urine Ketones Negative Urine Blood Negative Urine Nitrite Negative Urine Bilirubin Negative Urine Urobilinogen 0.2 Ur Leukocyte Esterase Negative 06/08/19 06/09/19 06/09/19 21:28 06:21 07:55 WBC 5.5 RBC 3.51 L Hgb 10.5 L Hct 30.2 L MCV 86.2 MCH 30.1 MCHC 34.9 RDW 14.3 Plt Count 242 MPV 9.7 Absolute Neuts (auto) 3.3 Neutrophils % 59.3 Lymphocytes % 26.8 Monocytes % 11.6 H Eosinophils % 1.6 Basophils % 0.7 Nucleated RBC % 0 Sodium Potassium Chloride Carbon Dioxide Anion Gap BUN Creatinine Est GFR (CKD-EPI)AfAm Est GFR (CKD-EPI)NonAf POC Glucometer 115 210 Random Glucose Calcium Total Bilirubin AST ALT Alkaline Phosphatase Creatine Kinase Creatine Kinase Index CK-MB (CK-2) Total Protein Albumin Urine Color Urine Appearance Urine pH Ur Specific [place] Urine Protein Urine Glucose (UA) Urine Ketones Urine Blood Urine Nitrite Urine Bilirubin Urine Urobilinogen Ur Leukocyte Esterase 06/09/19 06/09/19 07:55 10:54 WBC RBC Hgb Hct MCV MCH MCHC RDW Plt Count MPV Absolute Neuts (auto) Neutrophils % Lymphocytes % Monocytes % Eosinophils % Basophils % Nucleated RBC % Sodium 140 Potassium 4.2 Chloride 107 Carbon Dioxide 29 Anion Gap 4 L BUN 6.8 L Creatinine 1.2 Est GFR (CKD-EPI)AfAm 90.26 Est GFR (CKD-EPI)NonAf 77.87 POC Glucometer 169 Random Glucose 189 H Calcium 8.4 L Total Bilirubin 0.4 AST 74 H ALT 85 H Alkaline Phosphatase 51 Creatine Kinase Creatine Kinase Index CK-MB (CK-2) Total Protein 5.8 L Albumin 3.4 Urine Color Urine Appearance Urine pH Ur Specific [place] Urine Protein Urine Glucose (UA) Urine Ketones Urine Blood Urine Nitrite Urine Bilirubin Urine Urobilinogen Ur Leukocyte Esterase HOSPITAL COURSE: Date of Admission:06/05/19 Date of Discharge: 06/09/19 Minutes to complete discharge: 45 Discharge Summary Problems reviewed: Yes Reason For Visit: ACUTE KIDNEY INJURY,HYPERGLYCEMIA,PANCREATITIS Current Active Problems BERTO (acute kidney injury) (Acute) DVT prophylaxis (Acute) Elevated lipase (Acute) High triglycerides (Acute) Hyperglycemia (Acute) Hyperlipidemia (Acute) Morbid obesity (Acute) Rhabdomyolysis (Acute) Type 2 diabetes mellitus with hyperosmolarity with coma (Acute) Condition: Improved - Instructions Diet, Activity, Other Instructions: Mr. Ceron: You were seen at [facility] for high blood sugars and high triglycerides. We will start you on an insulin called Novolog 70/30. What is Novolog 70/30? Novolog 70/30 is an insulin that is a mixed insulin that provides you with insulin to lower your blood sugars. It starts to work within 10-20 minutes after you inject it and peaks in 2 hours. How do I take Novolog 70/30? this insulin is for you to take TWICE per day. First take your blood sugar with your glucometer. You must check twice before breakfast and before dinner, depending on the number, take as follows: If your blood sugar is between 100-200, take 10 units of the Novolog 70/30 - If your blood sugar is between 201-300, take 20 units of Novolog 70/30 If your blood sugar is between 301-350, take 30 units of Novolog 70/30 You will also go home with Metformin 1000mg TWICE per day (two tabs of 500mg) at 8am and 8pm. It is important that you follow up with the primary care provided assigned to you. Please also follow up the yacht master. Here is your new medicaion list Metformin 1000mg TWICE PER DAY - this medication helps regulate your diabetes at 8am and 8pm Novolog 70/30 - Take this twice per day based on the sliding scale above - before breakfast and before dinner Atorvastatin 40mg - once per at bedtime day for elevated cholesterol. Lisinopril 10mg - once per at 8am day for blood pressure control FOLLOW UPS: You have a new doctor's appointment. Doctor: Dr. Lagunas Date: 06/10/2019 at 3:30 pm. Time: 3:30pm Place: [address] the cost for this visit without insurance is $150.00. Please also call Dr. Sharpe as your insulin doseage may need to be adjusted. His information is enclosed. Thank you for allowing us to care for you. Referrals: [facility] [place] [Provider Group] (You have a new doctor's appointment. Doctor: Dr. Lagunas Date: 06/10/2019 at 3:30 pm. Time: 3:30pm Place: [facility] [address] [place] [address] Bring:) Harman Sharpe MD [Staff Physician] - Disposition: HOME - Home Medications Comprehensive Discharge Medication List: Ambulatory Orders Atorvastatin Ca [Lipitor] 40 mg PO HS #60 tablet 06/08/19 Lancets 1 each MC QID #150 each 06/08/19 Lisinopril [Prinivil] 10 mg PO DAILY #60 tablet 06/08/19 Miscellaneous Medical Supply [Glucometer Device] 1 each SQ ACHS #1 kit 06/08/19 Miscellaneous Medical Supply [Glucometer Test Strips #100] 1 each SQ ASDIR #1 box 06/08/19 metFORMIN HCL [Glucophage -] 1,000 mg PO BID@0700,1630 #120 tablet 06/08/19 Alcohol Antiseptic Pads [Alcohol Prep Pad] 1 each TP BID #100 med..pad 06/09/19 Insulin (Novolog 70/30) [Novolog Mix 70/30 Vial] 30 units SQ BID #2 vial 06/09/19 Syringe and Needle,Insulin,1Ml [Insulin Syringe] 1 each MC BID #100 disp.syrin 06/09/19 Problem List - Problems (1) Type 2 diabetes mellitus with hyperosmolarity with coma Code(s): E11.01 - TYPE 2 DIABETES MELLITUS WITH HYPEROSMOLARITY WITH COMA (2) Rhabdomyolysis Code(s): M62.82 - RHABDOMYOLYSIS (3) BERTO (acute kidney injury) Code(s): N17.9 - ACUTE KIDNEY FAILURE, UNSPECIFIED (4) Hyperglycemia Code(s): R73.9 - HYPERGLYCEMIA, UNSPECIFIED (5) Elevated lipase Code(s): R74.8 - ABNORMAL LEVELS OF OTHER SERUM ENZYMES (6) Morbid obesity Code(s): E66.01 - MORBID (SEVERE) OBESITY DUE TO EXCESS CALORIES (7) Hyperlipidemia Code(s): E78.5 - HYPERLIPIDEMIA, UNSPECIFIED (8) High triglycerides Code(s): E78.1 - PURE HYPERGLYCERIDEMIA (9) DVT prophylaxis Code(s): Z29.9 - ENCOUNTER FOR PROPHYLACTIC MEASURES, UNSPECIFIED This patient is new to me today: No Emergency Visit: Yes ED Registration Date: 06/05/19 Care time: The patient presented to the Emergency Department on the above date and was hospitalized for further evaluation of their emergent condition. Critical Care patient: No - Discharge Referral Referred to [facility] Med P.C.: No
[2019-06-09] MEDS: ACETAMINOPHEN 325 MG TABLET (FP) PO PRN (14:15)
[2019-06-09 14:25] VITALS: BP 126/67; PULSE 80; TEMP 98.7
[2019-06-09 14:36] VITALS: BMI 39.7
--- NOTE | 2019-06-09 18:53 | PN ---
Progress Note, Physician History of Present Illness: Pt seen and examined at bedside. He is awake and alert. He has no complaints. - Objective Vital Signs: Vital Signs Temperature 98.7 F 06/09/19 14:24 Pulse Rate 80 06/09/19 14:24 Respiratory Rate 18 06/09/19 14:24 Blood Pressure 126/67 06/09/19 14:24 O2 Sat by Pulse Oximetry (%) 100 06/09/19 09:00 Constitutional: Yes: Calm Eyes: Yes: Conjunctiva Clear HENT: Yes: Atraumatic Neck: Yes: Supple Cardiovascular: Yes: S1, S2 Respiratory: Yes: CTA Bilaterally Gastrointestinal: Yes: Normal Bowel Sounds, Soft, Abdomen, Obese Genitourinary: Yes: WNL Musculoskeletal: Yes: WNL Edema: LLE: Trace, RLE: Trace Neurological: Yes: Oriented Psychiatric: Yes: Oriented Labs: CBC, BMP 06/09/19 07:55 06/09/19 07:55 INR, PTT INR 0.88 (0.83-1.09) 06/05/19 22:50 Problem List - Problems (1) BERTO (acute kidney injury) Code(s): N17.9 - ACUTE KIDNEY FAILURE, UNSPECIFIED (2) Hyperglycemia Code(s): R73.9 - HYPERGLYCEMIA, UNSPECIFIED Assessment/Plan Laboratory Tests 06/08/19 10:20 Urine Color Yellow Urine Appearance Clear Urine pH 5.0 Ur Specific [place] 1.009 L Urine Protein Negative Urine Glucose (UA) Trace Urine Ketones Negative Urine Blood Negative Urine Nitrite Negative Urine Bilirubin Negative Impression 1. BERTO 2. dehydration 3. DM 4. gerd 5. obesity Plan - renal function stable - reviewed repeat ua - pt will take his diabetic meds - avoid nsaids and nephrotoxinis - outpt follow up - berto likely from dehydration secondary to uncontrolled DM
== END 2019-06-09 16:39 | disposition home or self-care (01) | DRG 420 ==
LOC: JER 21:30 → JERBED 22:38 → J7W 06-06 12:08
PROVIDERS: ADMIT Internal Medicine; ATTEND Nurse Practitioner Family
DX: E11.65 Type 2 diabetes mellitus with hyperglycemia (principal); N17.9 Acute kidney failure, unspecified; I10 Essential (primary) hypertension; R74.0 Nonspecific elevation of levels of transaminase and lactic acid dehydrogenase [LDH]; D64.9 Anemia, unspecified; K21.9 Gastro-esophageal reflux disease without esophagitis; Z68.39 Body mass index [BMI] 39.0-39.9, adult; E66.01 Morbid (severe) obesity due to excess calories; M62.82 Rhabdomyolysis; E78.1 Pure hyperglyceridemia; E78.5 Hyperlipidemia, unspecified; E86.0 Dehydration; Z91.14 Patient's other noncompliance with medication regimen
CPT/HCPCS: 36415; 71045-TC-FY; 74177-TC; 76705-TC; 76775-TC; 80053; 80061; 81003; 82010; 82272; 82550; 82553; 82607; 82728; 82746; 82803; 82962; 83036; 83540; 83550; 83690; 83721; 83735; 84466; 84484; 85025; 85027; 85044; 85610; 85730; 87086; 87804; 93005; 93010; 99285-25; J0131; J1644; J7030

== ENCOUNTER 2022-02-20 18:07 | Emergency (ER) | payer OTHER ==
[2022-02-20 18:20] VITALS: BP 138/74; PULSE 81; RESP 18; TEMP 98.7; BMI 35.4
[2022-02-20] MEDS ORDERED: ALBUTEROL SO4 2.5/IPRATROPIUM 0.5 INH SOL 3 ML VIAL.NEB. NEB ONE ×2 (22:12→22:23)
== END 2022-02-20 23:48 | disposition home or self-care (01) ==
LOC: JER 18:07
PROC: 3E0F7GC Introduction of Other Therapeutic Substance into Respiratory Tract, Via Natural or Artificial Opening (ICD-10-PCS; principal; 2022-02-20)
DX: J09.X2 Influenza due to identified novel influenza A virus with other respiratory manifestations (principal)
CPT/HCPCS: 0241U-QW; 71046-TC-FY; 99284-25